=== PATIENT | female | born 1975 | race Caucasian/White ===

== ENCOUNTER 2017-05-27 15:53 | Emergency (ER) | payer OTHER ==
[~2017-05-27] VITALS: Ht 162.6 cm; Wt 60.0 kg
[~2017-05-27 15:53] MED LIST: ALPR-411 PO; FLUO20CA35 PO; RTL20 PO
[2017-05-27 16:01] VITALS: TEMP 37; Ht 162.6 cm; Wt 60.0 kg
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
[2017-05-27 17:07] VITALS: BP 127/87; PULSE 76; O2SAT 96
[2017-05-27] MEDS ORDERED: LPT/20 PO (17:07)
[2017-05-27] MEDS ORDERED: BUPRENORPHIN-NALOXON SL (17:07)
[2017-05-27] MEDS ORDERED: WLLXL300 PO (17:07)
[2017-05-27] MEDS ORDERED: LAMO1TAB21 PO (17:07)
[2017-05-27] MEDS ORDERED: CETI10TA84 PO (17:07)
[2017-05-27] MEDS ORDERED: BUPR150T5 PO (17:07)
[2017-05-27] MEDS ORDERED: HYDR-3126 PO (17:07)
== END 2017-05-27 17:05 | disposition home or self-care (01) ==
LOC: C.EDB 15:53 → C.EDD 17:05
DX: M25.562 Pain in left knee (principal); F32.9 Major depressive disorder, single episode, unspecified; Z79.899 Other long term (current) drug therapy; Z91.09 Other allergy status, other than to drugs and biological substances

== ENCOUNTER 2023-11-25 06:15 | Observation (INO) ==
--- NOTE | 2023-11-25 06:34 | Emergency Department Note ---
Impression & Plan Altered mental status, Hypothermia, Alcoholic intoxication ED Provider Note NAME: URSULA COTTON AGE: 48 SEX: F : 1975 ARRIVES VIA: Ambulance INFORMANT: Patient ED PROVIDER(S): Rj Matthews DO CHIEF COMPLAINT: Cold HPI: Patient is a 48-year-old female with a past medical history of suicide attempt and drug dependence who presents to the ER for intoxication. She was banging on a house and they called the police as they did not know her. She was brought in by EMS. She was found to be hypothermic at 89 degrees. Patient denies any headache chest pain neck pain or belly pain. She admits she went out drinking yesterday and went to multiple bars with friends. She denies any drugs. ADDITIONAL HISTORY OBTAINED: Per HPI Chronic Medical/Social Conditions Affecting Care: Per HPI PAST MEDICAL HISTORY:See Below PAST SURGICAL HISTORY:See Below FAMILY HISTORY:See Below SOCIAL HISTORY:See Below HOME MEDICATIONS:See Below ALLERGIES:See Below VITALS:See Below PHYSICAL EXAMINATION: GENERAL: Sitting up in bed, alert, smell of alcohol on breath, disheveled, cold, shivering HEAD: Small abrasion over the chin EYE EXAM: normal conjunctiva. PERRL and EOM's intact. OROPHARYNX: no exudate, no erythema, lips, buccal mucosa, and tongue normal and mucous membranes are moist NECK: supple, no nuchal rigidity, no adenopathy, non-tender LUNGS: Clear to auscultation. Normal chest wall mechanics HEART: no murmurs, S1 normal and S2 normal ABDOMEN: abdomen soft, non-tender, normo-active bowel sounds, no masses, no rebound or guarding. UPPER EXTREMITIES: No tenderness on bilateral upper extremities LOWER EXTREMITIES: No tenderness on bilateral lower extremity palpation. Bruising bilateral knees NEURO EXAM: Normal sensorium, cranial nerves II-XII intact, normal speech, no weakness of arms, no weakness of legs. No drift. Finger to nose intact. Gross sensation intact. MEDICAL DECISION MAKING: Patient is a 48-year-old female who presents ER for above-stated complaint. IV was established blood work was obtained. Labs show no significant leukocytosis or anemia. INR unremarkable. BMP with mild hypokalemia 3.4. Lactate as well as mag Phos and CK were unremarkable. Pro-Chandu was normal. hCG negative. UA was clean. Patient was positive for ecstasy, benzos, methamphetamines and alcohol. Her mentation improved while she was in the ER. She was significantly hypothermic at 89 F and Iglesia hugger was placed and she was gradually rewarmed in the ER. Her mentation improved significantly. CT of the head neck and face were obtained after I discussed with the radiologist in regards to possible fracture on the Noncon of the head. There was a nasal bone fracture. She was initially given Rocephin was given doses of Unasyn following this. Discussed the case with the hospitalist for further evaluation management treatment. There was noted on the CTs which is likely secondary to IV placement per radiology Consults/Care Managements Discussions: Per [facility] Triage Nursing notes reviewed. Limited review of prior medical records performed Vital Signs: reviewed and remarkable for no significant abnormalities Differential diagnosis: Infection, dehydration, metabolic abnormality, hypo/hyperglycemia, electrolyte disturbance, anemia, hypoxia, cardiac sources, intracerebral event, toxicologic, neurologic, as well as other pathologies. ER treatment provided: See below Diagnostics interpreted by me include EKG and cardiac monitoring as listed below: -Cardiac Monitoring: An order was placed for continuous cardiac monitoring. The monitor shows a rate of 80 with sinus rhythm. -ECG: Sinus tachycardia rate of 62 Normal axis QTc 501 -Laboratory studies:Interpreted by me as stated above in MDM and shown below. Imaging studies: Xrays: As interpreted by me: Portable AP upright 1 view of the chest shows no focal infiltrate CTs show: CT of the head, cervical spine and face as described above Procedures:none Critical Care: None Past Med/Surg History Medical History (Updated 11/25/23 @ 12:27 by Rj Matthews DO) Collapsed lung Epilepsy Mood disorder Drug abuse and dependence Hepatitis C virus Surgical History (Updated 11/25/23 @ 09:48 by Adair Brunner MD) H/O umbilical hernia repair Family History (Updated 11/25/23 @ 09:50 by Adair Brunner MD) Mother Neurological disorder Father Neurological disorder Daughter Neurological disorder Social History Smoking Status: Current every day smoker Tobacco Type: Cigarettes Feels Safe at Home: Yes Allergies Allergies Allergy/AdvReac Type Severity Reaction Status Date / Time vitamin E (d-alpha Allergy Unknown Unknown Verified 08/11/23 15:32 tocopherol) Twiggs Allergy Mild PINE SAP: Uncoded 08/11/23 15:32 RASH Home Meds Home Medications Medication Instructions Recorded Confirmed ATORVASTATIN (LIPITOR) 20 mg PO DAILY ##0 05/27/17 BUPRENORPHIN-NALOXON 2 tabs sublingual Q24H ##0 05/27/17 BUPROPION HCL (BUPROPION HCL XL) 150 mg PO DAILY ##0 05/27/17 Bupropion HCl (Bupropion HCl Xl) 300 mg PO DAILY ##0 05/27/17 Cetirizine (Zyrtec) 10 mg PO DAILY PRN Seasonal 05/27/17 Allergies ##0 HYDROXYZINE HCL (ATARAX) 50 mg PO Q8 PRN Anxiety ##0 05/27/17 LAMOTRIGINE 200 mg PO DAILY ##0 05/27/17 Previous Rx's Medication Instructions Recorded naproxen 500 mg tablet 500 mg PO BID PRN pain #20 tabs 08/11/23 Results & Data (ED) Vital Signs Vital Signs - 24 hr 11/25/23 06:21 11/25/23 06:21 11/25/23 06:21 Temperature 31.8 C L 31.8 C L Temperature Source Rectal Rectal Pulse Rate 82 Pulse Rate [Apical] 82 Pulse Rhythm Regular Pulse Rhythm [Apical] Regular Pulse Strength Normal Pulse Strength [Apical] Normal Respiratory Rate 22 22 Respiratory Effort / Characteristics Non-Labored Spontaneous Non-Labored Spontaneous Respiratory Depth Normal Normal Respiratory Pattern Regular Regular Blood Pressure 144/99 H Blood Pressure [Right Arm] 144/99 H Blood Pressure Mean 114 Blood Pressure Mean [Right Arm] 114 Blood Pressure Position Lying Blood Pressure Position [Right Arm] Lying Pulse Oximetry 100 100 100 Oxygen Delivery Method Room Air Room Air Room Air Sepsis Recent Fever Within 48 Hours No Sepsis New/Unexplained Change in Mental Status N/A Sepsis Action Taken by Nursing Physician Notified 11/25/23 06:21 11/25/23 06:25 11/25/23 07:21 Temperature 31.8 C L 33.4 C L Temperature Source Rectal Rectal Pulse Rate Pulse Rate [Apical] 65 Pulse Rhythm Pulse Rhythm [Apical] Pulse Strength Pulse Strength [Apical] Respiratory Rate 18 Respiratory Effort / Characteristics Non-Labored Spontaneous Respiratory Depth Normal Respiratory Pattern Regular Blood Pressure Blood Pressure [Right Arm] Blood Pressure Mean Blood Pressure Mean [Right Arm] Blood Pressure Position Blood Pressure Position [Right Arm] Pulse Oximetry 100 96 Oxygen Delivery Method Room Air Room Air Sepsis Recent Fever Within 48 Hours Sepsis New/Unexplained Change in Mental Status Sepsis Action Taken by Nursing 11/25/23 07:38 11/25/23 08:00 11/25/23 08:04 Temperature Temperature Source Pulse Rate 76 Pulse Rate [Apical] 73 79 Pulse Rhythm Pulse Rhythm [Apical] Pulse Strength Pulse Strength [Apical] Respiratory Rate 18 18 Respiratory Effort / Characteristics Non-Labored Spontaneous Non-Labored Spontaneous Respiratory Depth Normal Normal Respiratory Pattern Regular Regular Blood Pressure Blood Pressure [Right Arm] 137/95 138/91 Blood Pressure Mean Blood Pressure Mean [Right Arm] 109 106 Blood Pressure Position Blood Pressure Position [Right Arm] Lying Lying Pulse Oximetry 96 95 Oxygen Delivery Method Room Air Room Air Sepsis Recent Fever Within 48 Hours Sepsis New/Unexplained Change in Mental Status Sepsis Action Taken by Nursing 11/25/23 08:30 11/25/23 09:32 11/25/23 09:50 Temperature 35.5 C L 36.7 C Temperature Source Rectal Oral Pulse Rate Pulse Rate [Apical] 92 H 89 Pulse Rhythm Pulse Rhythm [Apical] Pulse Strength Pulse Strength [Apical] Respiratory Rate 18 Respiratory Effort / Characteristics Non-Labored Spontaneous Respiratory Depth Normal Respiratory Pattern Regular Blood Pressure Blood Pressure [Right Arm] 146/93 H Blood Pressure Mean Blood Pressure Mean [Right Arm] 110 Blood Pressure Position Blood Pressure Position [Right Arm] Lying Pulse Oximetry 96 Oxygen Delivery Method Room Air Sepsis Recent Fever Within 48 Hours Sepsis New/Unexplained Change in Mental Status Sepsis Action Taken by Nursing 11/25/23 11:02 11/25/23 11:27 Temperature 36.7 C Temperature Source Oral Pulse Rate 87 Pulse Rate [Apical] 85 Pulse Rhythm Pulse Rhythm [Apical] Pulse Strength Pulse Strength [Apical] Respiratory Rate 18 Respiratory Effort / Characteristics Non-Labored Spontaneous Respiratory Depth Normal Respiratory Pattern Regular Blood Pressure Blood Pressure [Right Arm] 130/86 Blood Pressure Mean Blood Pressure Mean [Right Arm] 100 Blood Pressure Position Blood Pressure Position [Right Arm] Lying Pulse Oximetry 96 98 Oxygen Delivery Method Room Air Room Air Sepsis Recent Fever Within 48 Hours Sepsis New/Unexplained Change in Mental Status Sepsis Action Taken by Nursing Laboratory Data 11/25/23 06:38 11/25/23 06:38 Lab Results 11/25/23 11/25/23 11/25/23 Range/Units 06:38 08:25 08:31 WBC 5.23 (4.8-10.8) K/ul RBC 4.63 (4.20-5.40) M/uL Hgb 13.9 (12.0-16.0) g/dl Hct 43.4 (37.0-47.0) % MCV 93.7 (80.0-100.0) fL MCH 30.0 (25.0-34.0) pg MCHC 32.0 (32.0-36.0) g/dL RDW Std Deviation 43.5 (36.4-46.3) fL RDW Coeff of Em 12.6 (11.5-14.5) % Plt Count 341 (130-400) K/uL MPV 9.2 L (9.4-12.4) fL Immature Gran % (Auto) 1.3 % Neut % (Auto) 46.3 % Lymph % (Auto) 36.9 % Leake % (Auto) 9.6 % Eos % (Auto) 4.8 % Baso % (Auto) 1.1 % Neut # (Auto) 2.42 (1.40-6.50) K/uL Lymph # (Auto) 1.93 (1.20-3.40) K/uL Leake # (Auto) 0.50 (0.11-0.59) K/uL Eos # (Auto) 0.25 (0.00-0.50) K/uL Baso # (Auto) 0.06 (0.00-0.20) K/uL Immature Gran # (Auto) 0.07 (0.01-0.20) K/uL PT 10.9 (9.0-12.0) Seconds INR 1.0 (0.9-1.1) Sodium 141 (136-145) mmol/L Potassium 3.4 L (3.5-5.1) mmol/L Chloride 106 (98-107) mmol/L Carbon Dioxide 30 (21-32) mmol/L Anion Gap 5 (3-11) BUN 13 (6-23) mg/dl Creatinine 0.49 L (0.6-1.2) mg/dl Est Cr Clr Drug Dosing 132.9 ml/min Est GFR ( Amer) 134.5 ml/min Est GFR (Non-Af Amer) 116.0 ml/min BUN/Creatinine Ratio 26.5 H (10-20) Glucose 103 H (70-99(Fasting)) mg/dl Lactate 1.6 (0.4-2.0) mmol/L Calcium 9.1 (8.6-10.3) mg/dl Phosphorus 2.5 (2.5-4.9) mg/dl Magnesium 1.9 (1.7-2.4) mg/dl Total Bilirubin 0.2 (0.2-1.0) mg/dl AST 16 (13-39) U/L ALT 9 (7-52) U/L Alkaline Phosphatase 75 (34-104) U/L Total Creatine Kinase 84 (26-192) U/L Total Protein 8.0 (6.0-8.3) gm/dl Albumin 4.0 (3.4-5.0) gm/dl Globulin 4.0 (2.5-4.0) gm/dl Albumin/Globulin Ratio 1.0 (0.9-2) Procalcitonin < 0.02 (0-0.5) ng/ml HCG, Qual Negative (Negative) Urine Color Yellow Urine Appearance Clear (Clear) Urine pH 8.0 H (4.5-7.5) Ur Specific [place] 1.012 (1.000-1.030) Urine Protein Negative (Negative) Urine Glucose (UA) Negative (Negative) Urine Ketones Negative (Negative) Urine Blood 3+ H (Negative) Urine Nitrite Negative (Negative) Urine Bilirubin Negative (Negative) Urine Urobilinogen Negative (Negative) Ur Leukocyte Esterase Negative (Negative) Urine WBC (Auto) 0-5 (0-5) /hpf Urine RBC (Auto) >20 H (0-2) /hpf U Hyaline Cast (Auto) 0-2 (0-2) /lpf U Epithel Cells (Auto) 0-2 (0-2) /hpf Urine Bacteria (Auto) None Seen (None Seen) Urine Opiates Screen Neg (Neg) Ur Methadone, Qual Neg (Neg) Urine Barbiturates Neg (Neg) Ur Phencyclidine (PCP) Neg (Neg) U Amphetamin/Meth Scrn Pos H (Neg) MDMA (Ecstasy) Screen Pos H (Neg) U Benzodiazepines Scrn Pos H (Neg) Ur Cocaine Metabolite Neg (Neg) U Marijuana (THC) Screen Neg (Neg) Ethyl Alcohol mg/dL 76.1 H (<10.0) mg/dl Administered Medications Discontinued Medications Sodium Chloride (Nss) 1,000 mls @ 999 mls/hr IV .Q1H1M MARGOT Stop: 11/25/23 08:30 Last Infusion: 11/25/23 08:51 Dose: Infused Documented By: Admin: 11/25/23 07:37 Dose: 999 mls/hr Documented By: Infusion: 11/25/23 07:37 Dose: Infused Documented By: Admin: 11/25/23 06:43 Dose: 999 mls/hr Documented By: PAU Thiamine HCl 100 mg/ Syringe 10 mls @ 2 mls/min IV NOW STA Stop: 11/25/23 06:36 Last Admin: 11/25/23 06:58 Dose: 2 mls/min Documented By: KELLEE Folic Acid 1 mg/ Syringe 10 mls @ 5 mls/min IV NOW STA Stop: 11/25/23 06:33 Last Admin: 11/25/23 06:58 Dose: 5 mls/min Documented By: KELLEE Ceftriaxone Sodium (Rocephin) 2,000 mg in 50 mls @ 100 mls/hr IV NOW STA Stop: 11/25/23 08:17 Last Infusion: 11/25/23 09:20 Dose: Infused Documented By: Admin: 11/25/23 08:49 Dose: 100 mls/hr Documented By: KELLEE Ampicillin Sodium/Sulbactam Sodium 3,000 mg/ Sodium Chloride 100 mls @ 200 mls/hr IV NOW STA Stop: 11/25/23 09:35 Last Infusion: 11/25/23 11:05 Dose: Infused Documented By: Admin: 11/25/23 09:49 Dose: 200 mls/hr Documented By: KELLEE Ketorolac Tromethamine (Ketorolac Tromethamine 15 Mg/Ml Vial) 15 mg IV NOW ONE Stop: 11/25/23 08:48 Last Admin: 11/25/23 09:04 Dose: 15 mg Documented By: KELLEE Imaging Data Radiologist's Impression: Head CT 11/25/23 06:30 CT head/brain wo con CLINICAL HISTORY: 48 years-old Female with alvarez. Acute headache with fatigue TECHNIQUE: Multiple axial CT images of the head were obtained without contrast. A dose lowering technique was utilized adhering to the principles of ALARA. CT DOSE: 547.75 mGy.cm COMPARISON: 05/01/2011 FINDINGS: No acute intracranial hemorrhage, midline shift, intracranial mass, hydrocephalus, territorial ischemia or abnormal extra-axial collection. The calvarium is intact. Partially imaged deep tissue air noted noted anterior to the pterygoid musculature adjacent to the posterior maloney of the maxillary sinuses. Bony irregularity of the nasal bones. The paranasal sinuses, mastoid air cells, and middle ear cavities are clear. IMPRESSION: 1. No acute intracranial abnormality or calvarial fracture. 2. Partially imaged deep tissue air anterior to the pterygoid musculature adjacent to the posterior maloney of the maxillary sinuses. Findings could be correlated with CT maxillofacial. ACT 112: Negative or not required by law. The above report was generated using voice recognition software. It may contain grammatical, syntax or spelling errors. Electronically signed by: Cb Bundy M.D. 11/25/2023 8:13 AM Chest X-Ray 11/25/23 06:39 XR chest 1V portable HISTORY: 48 years-old Female weak acute weakness COMPARISON: 05/01/2011 TECHNIQUE: AP view the chest FINDINGS: Cardiomediastinal and hilar silhouettes are within normal limits. No pneumothorax, pleural effusion, airspace consolidation or pulmonary edema. Bones of the chest appear grossly intact. IMPRESSION: No acute process. ACT 112: Negative or not required by law. The above report was generated using voice recognition software. It may contain grammatical, syntax or spelling errors. Electronically signed by: Cb Bundy M.D. 11/25/2023 7:[address] 11/25/23 08:12 CT cervical spine wo con CT DOSE: 777.18 mGy.cm CLINICAL HISTORY: 48 years-old Female with fall. Acute neck injury status post fall COMPARISON: 05/11/2011 TECHNIQUE: Multiple axial CT images of the cervical spine were obtained without contrast. A dose lowering technique was utilized adhering to the principles of ALARA. FINDINGS: Moderate intervertebral disc space narrowing with bridging osteophytosis and posterior disc osteophyte complex that C5-C6. Multilevel facet arthrosis, severe on the left at C2-C3 and C7-T1. No acute fracture or subluxation. Multilevel neural foraminal narrowing. No high-grade central canal stenosis identified. Heterogeneous multinodular thyroid with nodules measuring up to approximately 9-10 mm on the right. No prevertebral edema. No pneumothorax. Mild ill-defined groundglass opacities in the right lung apex are nonspecific. IMPRESSION: No acute fracture or subluxation. ACT 112: Negative or not required by law. The above report was generated using voice recognition software. It may contain grammatical, syntax or spelling errors. Electronically signed by: Cb Bundy M.D. 11/25/2023 8:[address] 11/25/23 08:12 CT facial bones wo con CLINICAL HISTORY: 48 years-old Female presenting with fall. Acute facial trauma status post fall COMPARISON STUDY: CT head and cervical spine studies of same day TECHNIQUE: High-resolution CT scan of the facial bones is performed. Images are reviewed in the axial, sagittal, and coronal planes. IV contrast was not administered for this examination. A dose lowering technique was utilized adhering to the principles of ALARA. FINDINGS: Bilateral nondisplaced nasal bone fractures, likely acute. Mild mucosal thickening of the paranasal sinuses. Mastoid air cells and middle ear cavities are clear. Foci of deep tissue are noted within the cavernous sinuses and anterior to the right pterygoid musculature posterior to the right maxillary wall. No additional acute facial bone fracture identified. Numerous dental caries with periapical cyst. No acute intracranial abnormality identified. Small forehead and facial contusions. IMPRESSION: 1. Bilateral nondisplaced nasal bone fractures, favored to be acute. 2. Air within the cavernous sinuses and adjacent to the pterygoid musculature is likely secondary to air injected through the intravenous catheter. 3. Mild mucosal thickening of the paranasal sinuses. ACT 112: Negative or not required by law. The above report was generated using voice recognition software. It may contain grammatical, syntax or spelling errors. Electronically signed by: Cb Bundy M.D. 11/25/2023 8:55 AM Lumbar Spine X-Ray 11/25/23 08:47 XR lumbar spine 2-3V HISTORY: 48 years-old Female fall lower back pain acute low back pain status post fall COMPARISON: CT 05/01/2011 TECHNIQUE: 3 views of the lumbar spine FINDINGS: Moderate colonic fecal retention. Unremarkable soft tissues. Severe L4-L5 intervertebral disc space narrowing with progressive 1.2 cm anterolisthesis secondary to chronic pars defects. Progressively worsened now severe intervertebral disc space narrowing at L5-S1 with severe L5-S1 facet arthrosis. IMPRESSION: 1. No acute fracture. 2. Severe L4-L5 and L5-S1 intervertebral disc space narrowing. 3. Progressive anterolisthesis L4 on L5 secondary to chronic pars defects. ACT 112: Negative or not required by law. The above report was generated using voice recognition software. It may contain grammatical, syntax or spelling errors. Electronically signed by: Cb Bundy M.D. 11/25/2023 9:46 AM Discharge Plan Visit Data Chief Complaint: Alcohol Intoxication Stated Complaint: ALCOHOL INTOXICATION ED Provider: Rj Matthews Discharge Problem: Altered mental status, Hypothermia, Alcoholic intoxication Patient Disposition: Admitted As Inpatient Discharge Instructions Interventions: ED Discharge Assessment Last Done: 11/25/23 12:24 Forms Stand Alone Forms: Slingbox Prescriptions Prescriptions: No Action ATORVASTATIN (LIPITOR) 20 MG tablet 20 mg PO DAILY Qty: 0 BUPRENORPHIN-NALOXON 8-2 mg 2 tabs Sublingual Q24H Qty: 0 BUPROPION HCL (BUPROPION HCL XL) 150 MG tablet 150 mg PO DAILY Qty: 0 Bupropion HCl (Bupropion HCl Xl) 300 MG [id number] 300 mg PO DAILY Qty: 0 Cetirizine (Zyrtec) 10 MG tablet 10 mg PO DAILY PRN (Reason: Seasonal Allergies) Qty: 0 HYDROXYZINE HCL (ATARAX) 50 MG tablet 50 mg PO Q8 PRN (Reason: Anxiety) Qty: 0 LAMOTRIGINE 100 MG tablet 200 mg PO DAILY Qty: 0 naproxen 500 mg tablet 500 mg PO BID PRN (Reason: pain) Qty: 20 0RF Referrals Referrals: PCP,NO [Primary Care Provider] - Discharge Problem: Altered mental status Qualifiers: Altered mental status type: unspecified Qualified Code(s): R41.82 - Altered mental status, unspecified Hypothermia Qualifiers: Encounter type: initial encounter Qualified Code(s): T68.XXXA - Hypothermia, initial encounter Alcoholic intoxication Qualifiers: Complication of substance-induced condition: uncomplicated Qualified Code(s): F 10.920 - Alcohol use, unspecified with intoxication, uncomplicated
[2023-11-25] MEDS: SODIUM CHLORIDE 0.9% 1,000 ML IV SCH (06:43)
[2023-11-25 06:56] LABS: Basophils # (auto) 0.06 K/uL (0.00-0.20); Basophils % (auto) 1.1 %; Eosinophils # (auto) 0.25 K/uL (0.00-0.50); Eosinophils % (auto) 4.8 %; Hematocrit (blood only) 43.4 % (37.0-47.0); Hemoglobin 13.9 g/dl (12.0-16.0); Immature Granulocytes # (auto) 0.07 K/uL (0.01-0.20); Immature Granulocytes % (auto) 1.3 %; Lymphocytes # (auto) 1.93 K/uL (1.20-3.40); Lymphocytes % (auto) 36.9 %; Mean Corpuscular Volume 93.7 fL (80.0-100.0); Mean Platelet Volume 9.2 fL (9.4-12.4); Monocytes % (auto) 9.6 %; Neutrophils # (auto) 2.42 K/uL (1.40-6.50); Neutrophils % (auto) 46.3 %; Platelet Count 341 K/uL (130-400); RDW Coefficient of Variation 12.6 % (11.5-14.5); RDW Standard Deviation 43.5 fL (36.4-46.3); Red Blood Count 4.63 M/uL (4.20-5.40); White Blood Count 5.23 K/ul (4.8-10.8)
[2023-11-25] MEDS: FOLIC ACID 1 MG in SYRINGE 9.8 ML IV STA (06:58)
[2023-11-25] MEDS: THIAMINE HCL 100 MG in SYRINGE 9 ML IV STA (06:58)
[2023-11-25 07:05] LABS: Pregnancy Test, Serum Negative (Negative)
[2023-11-25 07:09] LABS: BUN Creatinine Ratio 26.5 (10-20); Bilirubin,Total 0.2 mg/dl (0.2-1.0); Calcium 9.1 mg/dl (8.6-10.3); Creatinine Clr Calc Pharmacy 132.9 ml/min; Est GFR (African American) 134.5 ml/min; Magnesium 1.9 mg/dl (1.7-2.4); Potassium 3.4 mmol/L (3.5-5.1)
[2023-11-25 07:34] LABS: Prothrombin Time 10.9 Seconds (9.0-12.0)
--- NOTE | 2023-11-25 08:01 | XRay Report ---
XR chest 1V portable HISTORY: 48 years-old Female weak acute weakness COMPARISON: 05/01/2011 TECHNIQUE: AP view the chest FINDINGS: Cardiomediastinal and hilar silhouettes are within normal limits. No pneumothorax, pleural effusion, airspace consolidation or pulmonary edema. Bones of the chest appear grossly intact. IMPRESSION: No acute process. ACT 112: Negative or not required by law. The above report was generated using voice recognition software. It may contain grammatical, syntax o r spelling errors. Electronically signed by: Cb Bundy M.D. 11/25/2023 7:59 AM
--- NOTE | 2023-11-25 08:16 | CT Scan Report ---
CT head/brain wo con CLINICAL HISTORY: 48 years-old Female with alvarez. Acute headache with fatigue TECHNIQUE: Multiple axial CT images of the head were obtained without contrast. A dose lowering tech nique was utilized adhering to the principles of ALARA. CT DOSE: 547.75 mGy.cm COMPARISON: 05/01/2011 FINDINGS: No acute intracranial hemorrhage, midline shift, intracranial mass, hydrocephalus, territorial ischem ia or abnormal extra-axial collection. The calvarium is intact. Partially imaged deep tissue air noted noted anterior to the pterygoid muscu lature adjacent to the posterior maloney of the maxillary sinuses. Bony irregularity of the nasal bones . The paranasal sinuses, mastoid air cells, and middle ear cavities are clear. IMPRESSION: 1. No acute intracranial abnormality or calvarial fracture. 2. Partially imaged deep tissue air anterior to the pterygoid musculature adjacent to the posterior w alls of the maxillary sinuses. Findings could be correlated with CT maxillofacial. ACT 112: Negative or not required by law. The above report was generated using voice recognition software. It may contain grammatical, syntax o r spelling errors. Electronically signed by: Cb Bundy M.D. 11/25/2023 8:13 AM
[2023-11-25] MEDS: cefTRIAXone SODIUM 2,000 MG/50 ML BAG IV STA (08:49)
--- NOTE | 2023-11-25 08:57 | CT Scan Report ---
CT facial bones wo con CLINICAL HISTORY: 48 years-old Female presenting with fall. Acute facial trauma status post fall COMPARISON STUDY: CT head and cervical spine studies of same day TECHNIQUE: High-resolution CT scan of the facial bones is performed. Images are reviewed in the axia l, sagittal, and coronal planes. IV contrast was not administered for this examination. A dose lower ing technique was utilized adhering to the principles of ALARA. FINDINGS: Bilateral nondisplaced nasal bone fractures, likely acute. Mild mucosal thickening of the paranasal s inuses. Mastoid air cells and middle ear cavities are clear. Foci of deep tissue are noted within the cavernous sinuses and anterior to the right pterygoid musculature posterior to the right maxillary w all. No additional acute facial bone fracture identified. Numerous dental caries with periapical cyst . No acute intracranial abnormality identified. Small forehead and facial contusions. IMPRESSION: 1. Bilateral nondisplaced nasal bone fractures, favored to be acute. 2. Air within the cavernous sinuses and adjacent to the pterygoid musculature is likely secondary to air injected through the intravenous catheter. 3. Mild mucosal thickening of the paranasal sinuses. ACT 112: Negative or not required by law. The above report was generated using voice recognition software. It may contain grammatical, syntax o r spelling errors. Electronically signed by: Cb Bundy M.D. 11/25/2023 8:55 AM
[2023-11-25 08:58] LABS: Appearance Urine Clear (Clear); Bacteria Urine Automated None Seen (None Seen); Bilirubin Urine Negative (Negative); Blood Urine 3+ (Negative); Cast Urine Automated 0-2 /lpf (0-2); Color Urine Yellow; Epithelial Cell Urine Auto 0-2 /hpf (0-2); Glucose Urine UA Negative (Negative); Ketones Urine Negative (Negative); Leukocyte Esterase Urine Negative (Negative); Nitrite Urine Negative (Negative); Protein Urine Negative (Negative); RBC Urine Automated >20 /hpf (0-2); Specific Gravity Urine 1.012 (1.000-1.030); Urobilinogen Urine Negative (Negative); WBC Urine Automated 0-5 /hpf (0-5)
--- NOTE | 2023-11-25 09:02 | CT Scan Report ---
CT cervical spine wo con CT DOSE: 777.18 mGy.cm CLINICAL HISTORY: 48 years-old Female with fall. Acute neck injury status post fall COMPARISON: 05/11/2011 TECHNIQUE: Multiple axial CT images of the cervical spine were obtained without contrast. A dose low ering technique was utilized adhering to the principles of ALARA. FINDINGS: Moderate intervertebral disc space narrowing with bridging osteophytosis and posterior disc osteophyte complex that C5-C6. Multilevel facet arthrosis, severe on the left at C2-C3 and C7-T1. No acute fracture or subluxation. Multilevel neural foraminal narrowing. No high-grade central canal st enosis identified. Heterogeneous multinodular thyroid with nodules measuring up to approximately 9-10 mm on the right. No prevertebral edema. No pneumothorax. Mild ill-defined groundglass opacities in t he right lung apex are nonspecific. IMPRESSION: No acute fracture or subluxation. ACT 112: Negative or not required by law. The above report was generated using voice recognition software. It may contain grammatical, syntax o r spelling errors. Electronically signed by: Cb Bundy M.D. 11/25/2023 8:59 AM
[2023-11-25] MEDS: KETOROLAC TROMETHAMINE 15 MG/ML VIAL IV ONE (09:04)
--- NOTE | 2023-11-25 09:48 | XRay Report ---
XR lumbar spine 2-3V HISTORY: 48 years-old Female fall lower back pain acute low back pain status post fall COMPARISON: CT 05/01/2011 TECHNIQUE: 3 views of the lumbar spine FINDINGS: Moderate colonic fecal retention. Unremarkable soft tissues. Severe L4-L5 intervertebral disc space n arrowing with progressive 1.2 cm anterolisthesis secondary to chronic pars defects. Progressively wor sened now severe intervertebral disc space narrowing at L5-S1 with severe L5-S1 facet arthrosis. IMPRESSION: 1. No acute fracture. 2. Severe L4-L5 and L5-S1 intervertebral disc space narrowing. 3. Progressive anterolisthesis L4 on L5 secondary to chronic pars defects. ACT 112: Negative or not required by law. The above report was generated using voice recognition software. It may contain grammatical, syntax o r spelling errors. Electronically signed by: Cb Bundy M.D. 11/25/2023 9:46 AM
[2023-11-25] MEDS: AMPICILLIN/SULBACTAM SOD 3,000 MG in SODIUM CHLOR 0.9% MINI-B 100 ML IV STA (09:49)
[2023-11-25 09:52] LABS: Amphetamines+Metham, Urine Pos (Neg); Barbiturates, Urine Neg (Neg); Benzodiazepine, Urine Pos (Neg); Cocaine, Urine Neg (Neg); MDMA (Ecstacy), Urine Pos (Neg); Marijuana, Urine Neg (Neg); Methadone, Urine Neg (Neg); Opiate, Urine Neg (Neg); Phencyclidine, Urine Neg (Neg)
--- NOTE | 2023-11-25 10:00 | History & Physical Report ---
Date of Service November 25, 2023 Assessment & Plan (1) Altered mental status: (2) Hypothermia: Plan: 48 yo F w/ hx of drug abuse and dependence, history of suicide attempt, history of hep C s/p treatment, mood disorder, epilepsy/ seizures, smoker, history of poor dentition who presents with other mental status and hypothermic. Patient was pounding on the door on some house in [place], and was brought in by [facility] [employer]. Reportedly patient was drinking alcohol, took xanax, and Gabapentin. She also admits taking meth about 3 days ago, adderall, suboxne Patient was found hypothermic in the ED 31.8 Celsius, and Iglesia hugger was applied. Alcohol level 76, however full urine tox still pending. Hx of poor dentition - seen in ED in 07/2023 - prescribed augmentin ? homelessness. pt reports waking up in 'dirt", belongings found in alley Hypothermia - ? 09/14 to being homeless vs infection She was given ceftriaxone initially, now plan to start Unasyn per ED provider, as on CT nasal bone fractures found. Blood cultures obtained. ECG obtained, found prolonged QT. Follow cultx Obtain UA Groundglass opacities found on CT cervical spine - will obtain CT chest Procal Broad spectrum abx for now Cont. using iglesia hugger for now, closely monitor temp and hemodynamic status Alcohol intox./ alcohol abuse/ hx of seizure thiamine, folic acid monitor for withdrawal and seizure gabapentin protocol, ativan prn Pt can not clarify hx of seizures - home meds which she is not taking now are Trileptal, Lamictal. says she restarted taking wellbutrin 3 days ago (given by friend). Will further discus w/ neurology about possibly restarting her medications. Heterogeneous multinodular thyroid with nodules - found on CT, will need follow up - will obtain TSH Hx of hep C reportedly s/p treatment History of Present Illness Chief Complaint: AMS, hypothermia Primary Care Provider: NO PCP 48 yo F w/ hx of drug abuse and dependence, history of suicide attempt, history of hep C s/p treatment, mood disorder, epilepsy/ seizures, smoker, history of poor dentition who presents with other mental status and hypothermic. Patient was pounding on the door on some house in [place], and was brought in by [facility] [employer]. Reportedly patient was drinking alcohol, took xanax, and Gabapentin. Patient's belongings found in an alley way, questionable homelessness. Pt says she woke up in "dirt" outside. She says she "got intoxicated", and also took meth about 3 days ago, adderal and suboxone. Says she does not have insurance and so does not take her home meds - which include Prozac, Lamictal, Trileptal. She was also taking Wellbutrin - says she has been back on wellbutrin since about 3 days ago and got this from 'friend". She can not clarify her hx of seizures for me. She says she has not been seen by a doctor in a long time. She was seen in the ED here in July 2023 for broken tooth/ poor dentition and was discharged on Augmentin. Patient was found hypothermic in the ED 31.8 Celsius, and Iglesia hugger was applied. Alcohol level 76, however full urine tox still pending. She was given ceftriaxone initially, now plan to start Unasyn per ED provider, as on CT nasal bone fractures found. Blood cultures obtained. ECG obtained, found prolonged QT. Allergies Allergy/AdvReac Type Severity Reaction Status Date / Time vitamin E (d-alpha Allergy Unknown Unknown Verified 08/11/23 15:32 tocopherol) [place] Allergy Mild PINE SAP: Uncoded 08/11/23 15:32 RASH Home Medications Medication Instructions Recorded Confirmed Type ATORVASTATIN (LIPITOR) 20 mg PO DAILY ##0 05/27/17 History BUPRENORPHIN-NALOXON 2 tabs sublingual Q24H ##0 05/27/17 History BUPROPION HCL (BUPROPION HCL XL) 150 mg PO DAILY ##0 05/27/17 History Bupropion HCl (Bupropion HCl Xl) 300 mg PO DAILY ##0 05/27/17 History Cetirizine (Zyrtec) 10 mg PO DAILY PRN Seasonal 05/27/17 History Allergies ##0 HYDROXYZINE HCL (ATARAX) 50 mg PO Q8 PRN Anxiety ##0 05/27/17 History LAMOTRIGINE 200 mg PO DAILY ##0 05/27/17 History naproxen 500 mg tablet 500 mg PO BID PRN pain #20 tabs 08/11/23 Rx Past Med/Surg History Medical History (Updated 11/25/23 @ 12:27 by Rj Matthews DO) Collapsed lung Epilepsy Mood disorder Drug abuse and dependence Hepatitis C virus Surgical History (Updated 11/25/23 @ 09:48 by Adair Brunner MD) H/O umbilical hernia repair Family History (Updated 11/25/23 @ 09:50 by Adair Brunner MD) Mother Neurological disorder Father Neurological disorder Daughter Neurological disorder Social History Smoking Status: Current every day smoker Tobacco Type: Cigarettes Feels Safe at Home: Yes Review of Systems Review of Systems: All systems reviewed & are unremarkable except as noted in Subjective Physical Exam Physical Exam: Face - with small lacerations and edema Constitutional: WD/WN, vitals as above Eyes: PERRL, conjunctivae normal, anicteric sclerae ENMT: external ear and nose normal, oropharynx normal Neck: normal visual inspection Respiratory: normal respiratory effort, lungs clear to auscultation Cardiovascular: RRR, no murmur, no edema Chest (Breasts): Chest: normal inspection of chest Gastrointestinal (Abdomen): normal bowel sounds, soft, nontender, no hepatosplenomegaly Musculoskeletal: no cyanosis or clubbing, extremities motor strength 5/5 Skin: no rashes, warm and dry Neurologic: PERRL, EOMI, accommodation nl, no face palsy, no dysarthria Psychiatric: A+Ox3, euthymic affect (drowsy but arousable) Lymphatic: no lymphedema Results & Data Results & Data Vital Signs (Past 12 Hours) Vital Signs Temp Pulse Pulse Resp BP BP Pulse Ox 11/25/23 09:32 89 18 146/93 H 96 11/25/23 08:30 35.5 C L 92 H 11/25/23 08:04 76 11/25/23 08:00 79 18 138/91 95 11/25/23 07:38 73 18 137/95 96 11/25/23 07:21 33.4 C L 65 18 96 11/25/23 06:25 31.8 C L 11/25/23 06:21 100 11/25/23 06:21 31.8 C L 82 22 144/99 H 100 11/25/23 06:21 100 11/25/23 06:21 31.8 C L 82 22 144/99 H 100 O2 Del Method 11/25/23 09:32 Room Air 11/25/23 08:30 11/25/23 08:04 11/25/23 08:00 Room Air 11/25/23 07:38 Room Air 11/25/23 07:21 Room Air 11/25/23 06:25 11/25/23 06:21 Room Air 11/25/23 06:21 Room Air 11/25/23 06:21 Room Air 11/25/23 06:21 Room Air Diagnostic Findings CXR FINDINGS: Cardiomediastinal and hilar silhouettes are within normal limits. No pneumothorax, pleural effusion, airspace consolidation or pulmonary edema. Bones of the chest appear grossly intact. IMPRESSION: No acute process. CT Head FINDINGS: No acute intracranial hemorrhage, midline shift, intracranial mass, hydrocephalus, territorial ischemia or abnormal extra-axial collection. The calvarium is intact. Partially imaged deep tissue air noted noted anterior to the pterygoid musculature adjacent to the posterior maloney of the maxillary sinuses. Bony irregularity of the nasal bones. The paranasal sinuses, mastoid air cells, and middle ear cavities are clear. IMPRESSION: 1. No acute intracranial abnormality or calvarial fracture. 2. Partially imaged deep tissue air anterior to the pterygoid musculature adjacent to the posterior maloney of the maxillary sinuses. Findings could be correlated with CT maxillofacial. CT Cervical spine FINDINGS: Moderate intervertebral disc space narrowing with bridging osteophytosis and posterior disc osteophyte complex that C5-C6. Multilevel facet arthrosis, severe on the left at C2-C3 and C7-T1. No acute fracture or subluxation. Multilevel neural foraminal narrowing. No high-grade central canal stenosis identified. Heterogeneous multinodular thyroid with nodules measuring up to approximately 9-10 mm on the right. No prevertebral edema. No pneumothorax. Mild ill-defined groundglass opacities in the right lung apex are nonspecific. IMPRESSION: No acute fracture or subluxation. CT Face FINDINGS: Bilateral nondisplaced nasal bone fractures, likely acute. Mild mucosal thickening of the paranasal sinuses. Mastoid air cells and middle ear cavities are clear. Foci of deep tissue are noted within the cavernous sinuses and anterior to the right pterygoid musculature posterior to the right maxillary wall. No additional acute facial bone fracture identified. Numerous dental caries with periapical cyst. No acute intracranial abnormality identified. Small forehead and facial contusions. IMPRESSION: 1. Bilateral nondisplaced nasal bone fractures, favored to be acute. 2. Air within the cavernous sinuses and adjacent to the pterygoid musculature is likely secondary to air injected through the intravenous catheter. - this was discussed w/ ED provider and radiologist 3. Mild mucosal thickening of the paranasal sinuses.
[2023-11-25] MEDS ORDERED: LORazepam 3 MG in SYRINGE 1.5 ML IV PRN (10:46)
[2023-11-25] MEDS ORDERED: GABAPENTIN 600MG ALCOHOL WITHDRAWAL LOAD PO STA (10:46)
[2023-11-25] MEDS ORDERED: Ativan IV Alcohol Withdrawal--Active Protocol IV PRN (10:46)
[2023-11-25 10:47] LABS: Phosphorus 2.5 mg/dl (2.5-4.9)
--- NOTE | 2023-11-25 12:33 | CT Scan Report ---
CT chest diagnostic wo con CT DOSE: 226.07 mGy.cm CLINICAL HISTORY: 48 years-old Female with abnormal imaging. Acute weakness TECHNIQUE: Multiaxial CT images of the chest were performed without contrast. A dose lowering techni que was utilized adhering to the principles of ALARA. COMPARISON: Chest radiograph of same day, chest CT 10/30/2015 FINDINGS: Subcentimeter thyroid nodules. Subcentimeter mediastinal and hilar lymph nodes are likely n eurologic. Mild nonspecific circumferential wall thickening of the esophagus which is fluid-filled. H eart is upper limits in size without pericardial effusion. No thoracic aortic aneurysm. No pneumothor ax, pleural effusion or overt pulmonary edema. Mild patchy subsegmental ground glass opacities are no joleen throughout the right lung. Mild subsegmental left basilar atelectasis. The central airways are pa tent. No acute fracture. Soft tissues are unremarkable. No acute upper abdominal abnormality. IMPRESSION: 1. Patchy subsegmental groundglass densities are noted throughout the right lung. This finding in con junction with a fluid-filled esophagus raises the possibility of aspiration pneumonitis. 2. No lymphadenopathy or pleural effusion. ACT 112: Negative or not required by law. Electronically signed by: Cb Bundy M.D. 11/25/2023 12:30 PM
[2023-11-25] MEDS: POTASSIUM CHLORIDE / WTR 10 MEQ/100 ML PLCT IV ONE (13:45)
[2023-11-25] MEDS: MAGNESIUM SULFATE / D5W 1 GM/100 ML BAG IV ONE (13:45)
[2023-11-25] MEDS: LIDOCAINE 5% 1 PATCH TD STA (13:48)
[2023-11-25] MEDS: GABAPENTIN 600 MG TAB PO ONE (13:53)
--- NOTE | 2023-11-25 15:25 | Electrocardiogram Report ---
Test Reason : Blood Pressure : / mmHG Vent. Rate : 062 BPM Atrial Rate : 062 BPM P-R Int : 148 ms QRS Dur : 078 ms QT Int : 494 ms P-R-T Axes : 052 049 053 degrees QTc Int : 501 ms Normal sinus rhythm Prolonged QT Abnormal ECG When compared with ECG of 30-OCT-2015 02:43, Vent. rate has decreased BY 43 BPM Confirmed by Alfredito Sams ([id number]) on 11/25/2023 3:25:18 PM Referred By: REFERRED SELF Confirmed By:Stew Sams
[2023-11-25] MEDS: AMPICILLIN/SULBACTAM SOD 3,000 MG in SODIUM CHLOR 0.9% MINI-B 100 ML IV SCH (16:54)
[2023-11-25] MEDS: ACETAMINOPHEN 325 MG TAB PO PRN (20:18)
[2023-11-25] MEDS: THIAMINE HCL 200 MG in SODIUM CHLORIDE 0.9% 50 ML IV SCH (20:28)
[2023-11-25] MEDS: LORazepam 1 MG in SYRINGE 0.5 ML IV PRN (20:34)
[2023-11-25] MEDS: GABAPENTIN 100 MG CAP PO SCH (20:34)
[2023-11-25] MEDS: NICOTINE 14 MG/24 HR PATCH TD SCH (22:23)
[2023-11-26 07:19] LABS: Basophils # (auto) 0.04 K/uL (0.00-0.20); Basophils % (auto) 0.6 %; Eosinophils # (auto) 0.29 K/uL (0.00-0.50); Eosinophils % (auto) 4.1 %; Hematocrit (blood only) 33.5 % (37.0-47.0); Hemoglobin 11.3 g/dl (12.0-16.0); Immature Granulocytes # (auto) 0.02 K/uL (0.01-0.20); Immature Granulocytes % (auto) 0.3 %; Lymphocytes # (auto) 1.81 K/uL (1.20-3.40); Lymphocytes % (auto) 25.4 %; Mean Corpuscular Hgb Conc 33.7 g/dL (32.0-36.0); Mean Corpuscular Volume 91.8 fL (80.0-100.0); Mean Platelet Volume 9.8 fL (9.4-12.4); Monocytes # (auto) 0.68 K/uL (0.11-0.59); Monocytes % (auto) 9.5 %; Neutrophils # (auto) 4.29 K/uL (1.40-6.50); Neutrophils % (auto) 60.1 %; Platelet Count 302 K/uL (130-400); RDW Coefficient of Variation 12.7 % (11.5-14.5); RDW Standard Deviation 42.9 fL (36.4-46.3); Red Blood Count 3.65 M/uL (4.20-5.40); White Blood Count 7.13 K/ul (4.8-10.8)
[2023-11-26] MEDS: LORazepam 2 MG in SYRINGE 1 ML IV PRN (07:44)
[2023-11-26] MEDS: FOLIC ACID 1 MG in SYRINGE 9.8 ML IV SCH (07:46)
[2023-11-26 07:47] LABS: Albumin Level 3.1 gm/dl (3.4-5.0); BUN Creatinine Ratio 14.8 (10-20); Bilirubin,Total 0.3 mg/dl (0.2-1.0); Calcium 8.5 mg/dl (8.6-10.3); Creatinine Clr Calc Pharmacy 117.4 ml/min; Est GFR (African American) 130.2 ml/min; Est GFR (Non-African American) 112.4 ml/min; Globulin 3.1 gm/dl (2.5-4.0); Magnesium 1.9 mg/dl (1.7-2.4); Phosphorus 3.4 mg/dl (2.5-4.9); Potassium 3.3 mmol/L (3.5-5.1); Total Protein 6.2 gm/dl (6.0-8.3)
[2023-11-26 08:00] LABS: Thyroid Stimulating Hormone 0.667 uIu/ml (0.300-4.500)
[2023-11-26] MEDS ORDERED: ACETAMINOPHEN 1,000 MG/100 ML VIAL IV PRN (09:27)
[2023-11-26] MEDS: FLUoxetine HCL 10 MG CAP PO STA (09:42)
[2023-11-26] MEDS: KETOROLAC TROMETHAMINE 15 MG/ML VIAL IV ONE (09:42)
[2023-11-26] MEDS: CYCLOBENZAPRINE HCL 10 MG TAB PO STA (09:42)
[2023-11-26] MEDS: GABAPENTIN 600 MG TAB PO SCH (10:27)
--- NOTE | 2023-11-26 11:18 | Hospitalist Progress Note ---
Date of Service November 26, 2023 Assessment & Plan (1) Altered mental status: (2) Hypothermia: Plan: Ms. Gastelum is 48 year old woman with history of polysubstance drug abuse, history of suicide attempt, history of hep C s/p treatment, mood disorder, epilepsy/ seizures, smoker, history of poor dentition who was admitted on 11/24 due to acute metabolic encephalopathy and hypothermia. Patient found by Jacklyn FULTON and brought in for evaluation. Patient reports taking multiple substances within a short period of time, including psychmedications (adderall, wellbutrin, xanax) Suboxone (not prescribed) and crystal meth, in addition to alcohol. Patient reports falling and denies assault. Patient requesting multiple medications--mostly wellbutrin, however, she does not take consistently. She has history of seizure which is unclear as well, noting it was worse during , and believes it has been "years" since her last. She has not been on her antiepileptic medications for some "months." Has history of follow MAT and received injections of sublocade, but this was documented in 2019. Last updated [facility] include oxcarbazepine 600mg q12 hours, lamotrigine 100mg q12, prozac 20mg q12 #Hypothermia likely 2/2 acute intoxication and being outdoors for unknown period of time TSH 0.667 Resolved #Acute intoxication #Polysubstance abuse History of heroin abuse, now sources suboxone on street, no formal prescription Current meth use, benzo misuse CIWA and vitamin supplementation ongoing Conservative management as needed for opioid/Suboxone withdrawal Psych consult Gabapentin taper #Epilepsy #mood disorder Reported 4 years since last seizure, not on active meds Prior Regimen: Lamictal 100mg BID, Oxcarbazepine 600mg BID Neurology following: -Psychiatry consultation placed as "patient reports hx of being prescribed oxcarbazepine and lamotrigine due to overlapping effects of mood stabilization and AED" - Discontinue and avoid Wellbutrin 2/2 risk of lowering seizure threshold - Avoid levetiracetam due to hx of suicidal attempt/ideation -Continue continued seizure precautions, and utilize benzodiazepines emergently for any breakthrough clinical seizure like activity -Order MRI brain with and without contrast and EEG non urgently -s/p 10mg prozac, will defer to psych for continued regimen #Acute low back pain, DJD on imaging -lumbar XRay with severe narrowing of lumbar L4-L5, L5-S1 Tylenol and Ketorlac IV CT lumbar ordered #Acute nondisplaced nasal bon fracture Conservative management #GGO on CT chest #Aspiration pneumonitis? Denies respiratory symptoms at this time, covered with unasyn Follow infectious work up She was given ceftriaxone initially, now plan to start Unasyn per ED provider, as on CT nasal bone fractures found. Blood cultures obtained. ECG obtained, found #Anemia -Normocytic, no signs of bleed Anemia labs in am #prolonged QT. Repeat EKG #Multinodular thyroid with nodules TSH 0.667 Will need PCP follow up #Prior hep C -s/p treatment -Will order LFTS, will need OP follow up DVT lovenox Monitor on PCU in active withdrawal, follow up psych recommendations Admission and Anticipated Discharge Date Admission Date: November 25, 2023 Subjective LISA Reports feeling better, but noting that she is likely to withdrawal from suboxone. Requesting wellbutrin and prozac States she has not been consistent with any medications for months/years Endorses pain in neck and back, as well as general discomfort from impending withdrawal Reports most substances are acquired from "friends" and has not had routine care in "sometime" Denies any chest pain, palpitations or fevers/chills Physical Exam Constitutional: WD/WN, vitals as above anxious/nervous on exam Respiratory: normal respiratory effort, lungs clear to auscultation Cardiovascular: RRR, no murmur, no edema Skin: multiple abrasions and excoriations on nose and bilateral upper extremities; no signs of superimposed cellulitis Results & Data Results & Data Vital Signs (Past 12 Hours) Vital Signs Temp Pulse Resp BP Pulse Ox O2 Del Method 11/26/23 07:24 36.5 C 86 18 148/106 H 99 Room Air 11/26/23 01:39 36.7 C 73 16 134/88 98 Room Air Laboratory Results Short CBC 11/26/23 Range/Units 05:57 WBC 7.13 (4.8-10.8) K/ul Hgb 11.3 L (12.0-16.0) g/dl Hct 33.5 L (37.0-47.0) % Plt Count 302 (130-400) K/uL BMP 11/26/23 05:57 Sodium 139 Potassium 3.3 L Chloride 108 H Carbon Dioxide 27 BUN 8 Creatinine 0.54 L Glucose 93 Calcium 8.5 L Liver Function 11/26/23 Range/Units 05:57 Total Bilirubin 0.3 (0.2-1.0) mg/dl AST 13 (13-39) U/L ALT 7 (7-52) U/L Alkaline Phosphatase 61 (34-104) U/L Albumin 3.1 L (3.4-5.0) gm/dl Medications Administered Home Medications Medication Instructions Recorded Confirmed Last Taken ATORVASTATIN (LIPITOR) 20 mg PO DAILY ##0 05/27/17 Unknown BUPRENORPHIN-NALOXON 2 tabs sublingual Q24H ##0 05/27/17 Unknown BUPROPION HCL (BUPROPION HCL XL) 150 mg PO DAILY ##0 05/27/17 Unknown Bupropion HCl (Bupropion HCl Xl) 300 mg PO DAILY ##0 05/27/17 Unknown Cetirizine (Zyrtec) 10 mg PO DAILY PRN Seasonal 05/27/17 Unknown Allergies ##0 HYDROXYZINE HCL (ATARAX) 50 mg PO Q8 PRN Anxiety ##0 05/27/17 Unknown LAMOTRIGINE 200 mg PO DAILY ##0 05/27/17 Unknown naproxen 500 mg tablet 500 mg PO BID PRN pain #20 tabs 08/11/23 Unknown Active Medications Generic Name Dose Route Start Last Admin Trade Name Freq PRN Reason Stop Dose Admin Thiamine HCl 200 mg/ Sodium 52 mls @ 210 mls/hr 11/25/23 21:00 11/26/23 08:12 Chloride IV 12/25/23 20:59 Infused BID MARGOT Infusion Folic Acid 1 mg/ Syringe 10 mls @ 5 mls/min 11/26/23 09:00 11/26/23 07:46 IV 12/26/23 08:59 5 mls/min QAM MARGOT Administration Lorazepam 1 mg/ Syringe 1 mls @ 2 mls/min 11/25/23 10:46 11/25/23 22:59 IV 12/25/23 10:45 2 mls/min UD PRN Administration EtOH Withdrawal AWSS Score 6,7 Protocol Lorazepam 2 mg/ Syringe 2 mls @ 2 mls/min 11/25/23 10:46 11/26/23 07:44 IV 12/25/23 10:45 2 mls/min UD PRN Administration EtOH Withdrawal AWSS Score 8,9 Protocol Ampicillin Sodium/Sulbactam 100 mls @ 100 mls/hr 11/25/23 16:00 11/26/23 11:00 Sodium 3,000 mg/ Sodium IV 11/27/23 15:59 Infused Chloride Q6H MARGOT Infusion Miscellaneous 1 each 11/25/23 21:00 11/25/23 22:26 Remove Lidoderm Patch N/A 12/25/23 20:59 Not Given DAILY@2100 MARGOT Nicotine 14 mg 11/25/23 21:30 11/25/23 22:23 Nicotine 14 Mg/24 Hr Patch TD 12/25/23 21:29 14 mg HS MARGOT Administration (1) Altered mental status Altered mental status type: unspecified Qualified Code(s): R41.82 - Altered mental status, unspecified (2) Hypothermia Encounter type: initial encounter Qualified Code(s): T68.XXXA - Hypothermia, initial encounter
--- NOTE | 2023-11-26 11:24 | Neurology Consultation ---
Date of Consultation November 26, 2023 Assessment & Plan (1) Epilepsy: Reported hx of seizure- reports last seizure 4 years ago States she has not been on oxcarbazepine for almost two months Recently taking bupropion Recommend psychiatry consultation: patient reports hx of being prescribed oxcarbazepine and lamotrigine due to overlapping effects of mood stabilization and AED Recommend do not take bupropion due to medication risk of lowering seizure threshold Recommend do not take levetiracetam due to hx of suicidal attempt/ideation Recommend continued CIWA protocol, vitamin supplementation From neurology perspective: Recommend continued seizure precautions, and utilize benzodiazepines emergently for any breakthrough clinical seizure like activity Obtain MRI brain with and without contrast and EEG non urgently Would likely benefit from continued medication for mood stabilization with subsequent antiepileptic effect as well- defer to psychiatry (2) Lumbago: Reports lower back pain- she thinks she may have fallen Recommend continue to monitor/control pain Recommend imaging of lumbar spine to evaluate for injury Telehealth Consultation Telehealth Information Telehealth Information: I performed this visit using a real-time telehealth connection between my location and the patients location ([facility]). After connecting through interactive tele-video, patient was identified by name and date of and/or wristband check.Patient (or authorized healthcare malt liquors sales representative) was informed that this was a telemedicine visit and it was being conducted confidentially over secure lines. My office door was closed and no one else was present in the room with me.Patient (or authorized healthcare malt liquors sales representative) provided consent to proceed with the visit, expressed an understanding of privacy and security of the telemedicine visit, and gave permission to have a hospital malt liquors sales representative in the room in order to assist with the visit and to conduct portions of the visit, as needed. I informed the patient (or authorized healthcare malt liquors sales representative) that I reviewed their record and presented the opportunity for them to ask any questions regarding the visit today. The patient agreed to participate. History of Present Illness Reason for Consultation: Restarting Seizure meds Requesting Physician: Dr. Brunner Attending Physician: Ira Kaplan MD History of Present Illness 48yo female with documented hx of suicide attempt, mood disorder, HCV, polysubstance abuse epilepsy presented hypothermic with significant changes in mentation. Apparently was brought to ER by police. Has been seen via televideo consultation by neurology after request made in regard to seizure medications. She reports not taking oxcarbazepine for nearly two months but notes it was prescribed to her primarily for mood stabilization. Also reports hx of utilizing lamotrigine for both mood stabilization and AED while she was . Reports last seizure over 4 years ago. Does not follow regularly with Neurology for seizure management. She reports recently taking bupropion that she got from a friend but states that she was prescribed this medication in the past. She is able to answer all questions and follow commands without difficulty. neurological exam is non lateralizing nonfocal in terms of motor strength and coordination. There is notable pressure speech. I have explained my recommendation to not take bupropion due to its effect of lowering seizure threshold. I have also explained ton her my recommendation to not take keppra as it is contraindicated in setting of hx of suicidal ideation or suicide attempt. In presence of RN at bedside, I have recommended notifying primary hospitalist team that I recommend psychiatry consultation. Agree with continued CIWA protocol and vitamin supplementation. Allergies Allergy/AdvReac Type Severity Reaction Status Date / Time tree and shrub pollen Allergy Mild PINE SAP Verified 11/26/23 09:32 CAUSES RASH vitamin E (d-alpha Allergy Unknown Unknown Verified 08/11/23 15:32 tocopherol) Home Medications Medication Instructions Recorded Confirmed Type ATORVASTATIN (LIPITOR) 20 mg PO DAILY ##0 05/27/17 History BUPRENORPHIN-NALOXON 2 tabs sublingual Q24H ##0 05/27/17 History BUPROPION HCL (BUPROPION HCL XL) 150 mg PO DAILY ##0 05/27/17 History Bupropion HCl (Bupropion HCl Xl) 300 mg PO DAILY ##0 05/27/17 History Cetirizine (Zyrtec) 10 mg PO DAILY PRN Seasonal 05/27/17 History Allergies ##0 HYDROXYZINE HCL (ATARAX) 50 mg PO Q8 PRN Anxiety ##0 05/27/17 History LAMOTRIGINE 200 mg PO DAILY ##0 05/27/17 History naproxen 500 mg tablet 500 mg PO BID PRN pain #20 tabs 08/11/23 Rx Patient History Medical History (Updated 11/26/23 @ 11:22 by Shahram Pang DO) Collapsed lung Epilepsy Mood disorder Drug abuse and dependence Hepatitis C virus Surgical History (Updated 11/25/23 @ 09:48 by Adair Brunner MD) H/O umbilical hernia repair Family History (Updated 11/25/23 @ 09:50 by Adair Brunner MD) Mother Neurological disorder Father Neurological disorder Daughter Neurological disorder Social History Smoking Status: Unknown if ever smoked Tobacco Type: Cigarettes Second Hand Exposure: No; Do You Dip or Chew Tobacco: No; Tobacco Cessation Education Requested by Patient: No Hx Alcohol Use: Yes Alcohol type: beer Hx Substance Use: Yes (Heroine) Last Used Substance: Unknown Substance Use Type Other:: Xanax and Suboxone. Preferred Language: Kyrgyz Saw Offbearer Required: No Beliefs That Will Affect Care: None Current Living Situation: Homeless Current Living Situation Comment: None. Other Information That Helps Us Care for You: Yes (Has attempted to setup services with local suboxone clinic, not successful.) Feels Safe at Home: Yes Safety Concerns: Feels Safe At This Time Assistive Devices: None Physical Exam Neurological Examination: Mental Status: Awake and alert. Oriented to person, place, and time. Fluency naming repetition and comprehension appear grossly intact. Affect remains appropriate. CN testing: I: Denies changes in ability to smell II:Reports no changes in visual acuity III/IV/: No evidence of gaze preference, hippus, nystagmus or roving eye movements V: Facial sensation reportedly grossly intact to light touch bilaterally VII: Facial movements appear without evidence of asymmetry VIII: Hearing appears grossly intact to loud voice bilaterally IX/X: Palate appears to elevate symmetrically XI: Shoulder shrug appears symmetric/ grossly intact bilaterally XII: Tongue protrudes midline without evidence of biting Motor exam: Strength appears grossly intact/symmetric in all extremities Sensory: Sensation is reportedly grossly intact throughout Coordination: Finger to nose and heel to olson were intact. No apparent evidence of dysmetria or dysdiadochokinesia Reflexes: Deferred Gait: Deferred Results & Data Vital Signs (Past 12 Hours) Vital Signs Temp Pulse Resp BP Pulse Ox O2 Del Method 11/26/23 07:24 36.5 C 86 18 148/106 H 99 Room Air 11/26/23 01:39 36.7 C 73 16 134/88 98 Room Air Laboratory Results Abnormal lab results 11/26/23 Range/Units 05:57 RBC 3.65 L (4.20-5.40) M/uL Hgb 11.3 L (12.0-16.0) g/dl Hct 33.5 L (37.0-47.0) % [place] # (Auto) 0.68 H (0.11-0.59) K/uL Potassium 3.3 L (3.5-5.1) mmol/L Chloride 108 H (98-107) mmol/L Creatinine 0.54 L (0.6-1.2) mg/dl Calcium 8.5 L (8.6-10.3) mg/dl Albumin 3.1 L (3.4-5.0) gm/dl Diagnostic Findings Chest CT 11/25/23 10:03 CT chest diagnostic wo con CT DOSE: 226.07 mGy.cm CLINICAL HISTORY: 48 years-old Female with abnormal imaging. Acute weakness TECHNIQUE: Multiaxial CT images of the chest were performed without contrast. A dose lowering technique was utilized adhering to the principles of ALARA. COMPARISON: Chest radiograph of same day, chest CT 10/30/2015 FINDINGS: Subcentimeter thyroid nodules. Subcentimeter mediastinal and hilar lymph nodes are likely neurologic. Mild nonspecific circumferential wall thickening of the esophagus which is fluid-filled. Heart is upper limits in size without pericardial effusion. No thoracic aortic aneurysm. No pneumothorax, pleural effusion or overt pulmonary edema. Mild patchy subsegmental ground glass opacities are noted throughout the right lung. Mild subsegmental left basilar atelectasis. The central airways are patent. No acute fracture. Soft tissues are unremarkable. No acute upper abdominal abnormality. IMPRESSION: 1. Patchy subsegmental groundglass densities are noted throughout the right lung. This finding in conjunction with a fluid-filled esophagus raises the possibility of aspiration pneumonitis. 2. No lymphadenopathy or pleural effusion. ACT 112: Negative or not required by law. Electronically signed by: Cb Bundy M.D. 11/25/2023 12:30 PM Medications Administered Home Medications Medication Instructions Recorded Confirmed Last Taken ATORVASTATIN (LIPITOR) 20 mg PO DAILY ##0 05/27/17 Unknown BUPRENORPHIN-NALOXON 2 tabs sublingual Q24H ##0 05/27/17 Unknown BUPROPION HCL (BUPROPION HCL XL) 150 mg PO DAILY ##0 05/27/17 Unknown Bupropion HCl (Bupropion HCl Xl) 300 mg PO DAILY ##0 05/27/17 Unknown Cetirizine (Zyrtec) 10 mg PO DAILY PRN Seasonal 05/27/17 Unknown Allergies ##0 HYDROXYZINE HCL (ATARAX) 50 mg PO Q8 PRN Anxiety ##0 05/27/17 Unknown LAMOTRIGINE 200 mg PO DAILY ##0 05/27/17 Unknown naproxen 500 mg tablet 500 mg PO BID PRN pain #20 tabs 08/11/23 Unknown Active Medications Generic Name Dose Route Start Last Admin Trade Name Freq PRN Reason Stop Dose Admin Acetaminophen 650 mg 11/25/23 10:30 11/26/23 07:54 Acetaminophen 325 Mg Tab PO 12/25/23 10:29 650 mg Q4H PRN Administration Pain or Fever Thiamine HCl 200 mg/ Sodium 52 mls @ 210 mls/hr 11/25/23 21:00 11/26/23 08:12 Chloride IV 12/25/23 20:59 Infused BID MARGOT Infusion Folic Acid 1 mg/ Syringe 10 mls @ 5 mls/min 11/26/23 09:00 11/26/23 07:46 IV 12/26/23 08:59 5 mls/min QAM MARGOT Administration Lorazepam 1 mg/ Syringe 1 mls @ 2 mls/min 11/25/23 10:46 11/25/23 22:59 IV 12/25/23 10:45 2 mls/min UD PRN Administration EtOH Withdrawal AWSS Score 6,7 Protocol Lorazepam 2 mg/ Syringe 2 mls @ 2 mls/min 11/25/23 10:46 11/26/23 07:44 IV 12/25/23 10:45 2 mls/min UD PRN Administration EtOH Withdrawal AWSS Score 8,9 Protocol Ampicillin Sodium/Sulbactam 100 mls @ 100 mls/hr 11/25/23 16:00 11/26/23 11:00 Sodium 3,000 mg/ Sodium IV 11/27/23 15:59 Infused Chloride Q6H MARGOT Infusion Miscellaneous 1 each 11/25/23 21:00 11/25/23 22:26 Remove Lidoderm Patch N/A 12/25/23 20:59 Not Given DAILY@2100 MARGOT Nicotine 14 mg 11/25/23 21:30 11/25/23 22:23 Nicotine 14 Mg/24 Hr Patch TD 12/25/23 21:29 14 mg HS MAROGT Administration
[2023-11-26] MEDS: POTASSIUM CHLORIDE CRTAB 20 MEQ TABCR PO STA (11:48)
[2023-11-26] MEDS: LIDOCAINE 5% 1 PATCH TD SCH (12:50)
[2023-11-26] MEDS: ENOXAPARIN INJ 40 MG/0.4 ML SYR SQ SCH (13:17)
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
[2023-11-26] MEDS: ACETAMINOPHEN 325 MG TAB PO SCH (14:24)
--- NOTE | 2023-11-26 16:52 | Electrocardiogram Report ---
Test Reason : Blood Pressure : / mmHG Vent. Rate : 081 BPM Atrial Rate : 081 BPM P-R Int : 132 ms QRS Dur : 074 ms QT Int : 402 ms P-R-T Axes : 025 035 037 degrees QTc Int : 466 ms Normal sinus rhythm Normal ECG When compared with ECG of 25-NOV-2023 07:19, No significant change was found Confirmed by Alfredito Sams ([id number]) on 11/26/2023 4:51:45 PM Referred By: REFERRED SELF Confirmed By:Stew Sams
[2023-11-26] MEDS: AMOXICILLIN/CLAVULANATE 875 MG TAB PO SCH (17:25)
--- NOTE | 2023-11-26 18:30 | CT Scan Report ---
CT SCAN OF THE LUMBAR SPINE WITHOUT IV CONTRAST CLINICAL HISTORY: Low back pain. Recent fall. COMPARISON STUDY: Radiographs of the lumbar spine dated 11/25/2023. Abdominal CT dated 05/01/2011. TECHNIQUE: CT scan of the lumbar spine was performed from the lower thoracic spine to the sacrum. Mariya ges are reviewed in the axial, sagittal, and coronal planes. IV contrast was not administered for thi s examination. A dose lowering technique was utilized adhering to the principles of ALARA. CT DOSE: 873.26 mGy.cm FINDINGS: The skeletal structures are well mineralized. There is no evidence of acute fracture or mal alignment involving the lumbar spine. Vertebral body height is maintained throughout the lumbar spine . There are bilateral pars defects at L4 with 1.5 cm of anterolisthesis at L4-L5. Alignment is otherw ise preserved. The transverse and spinous processes appear intact. No lytic or blastic lesion is seen . There is severe disc space narrowing at L4-L5 with associated endplate sclerosis. Moderate to sever e disc space narrowing is noted at L5-S1. The remaining disc spaces are maintained. Anterolisthesis c ontributes to at least mild central canal stenosis at L4-L5. A posterior disc bulge at L5-S1 is of no consequence. There is likely severe bilateral neural foraminal stenosis at L4-L5. The visualized sac rum and bony pelvis appear intact. Minimal degenerative change is noted in the sacroiliac joints. The paraspinous soft tissues are within normal limits. The visualized retroperitoneal structures are nor mal as imaged. IMPRESSION: 1. No acute bony abnormality is seen involving the lumbar spine. 2. There are bilateral pars defects at L4 with severe disc space narrowing and anterolisthesis at L4- L5. 3. Mild degenerative change as detailed above. ACT 112: Negative or not required by law. Dictated: 11/26/2023 1:33 PM Transcribed: 11/26/2023 1:44 PM Mariela [id number] JEFFERSON_Kirill [id number] Electronically signed by: Misael Archibald M.D. 11/26/2023 6:28 PM
[2023-11-26] MEDS: PROPRANOLOL HCL 10 MG TAB PO PRN (18:38)
[2023-11-26] MEDS: LORazepam 1 MG in SYRINGE 0.5 ML IV STA (19:38)
[2023-11-26] MEDS: GADOBUTROL 65ML VIAL IV ONE (21:02)
--- NOTE | 2023-11-26 21:40 | Magnetic Resonance Report ---
Exam(s): MRI HEAD W/WO Contrast IV Amt: 6.5CC GADAVIST EXAM: MR Head Without and With Intravenous Contrast CLINICAL HISTORY: Reason for exam: encephalopathy, hx of seizure. TECHNIQUE: Magnetic resonance images of the head/brain without and with intravenous contrast in multiple planes. Mild motion artifact. CONTRAST: Patient received 6.5CC GADAVIST of IV contrast COMPARISON: None. FINDINGS: Brain: No mass-effect or acute infarct. No acute or chronic hemorrhage. No abnormal enhancement. No mesial temporal sclerosis. Very minimal, chronic, nonspecific white matter disease. Ventricles: No hydrocephalus or midline shift. Bones/joints: No calvarial lesions. Soft tissues: No scalp hematoma. Sinuses: Generally clear. Mastoid air cells: No mastoid effusion. IMPRESSION: 1. Minimal age-related findings, as expected. 2. No abnormal enhancement, acute infarct, bleed, or acute intracranial abnormality. Electronically signed by: Yoselin Aivles M.D. 11/26/23 21:39 PM
[2023-11-26] MEDS: ARIPiprazole 5 MG TAB PO SCH (23:02)
[2023-11-26] MEDS: GABAPENTIN 400 MG CAP PO STA (23:08)
[2023-11-26] MEDS: KETOROLAC TROMETHAMINE 15 MG/ML VIAL IV PRN (23:19)
[2023-11-27 07:56] LABS: Hematocrit (blood only) 37.5 % (37.0-47.0); Hemoglobin 12.7 g/dl (12.0-16.0); Mean Corpuscular Hemoglobin 30.8 pg (25.0-34.0); Mean Corpuscular Hgb Conc 33.9 g/dL (32.0-36.0); Mean Platelet Volume 9.5 fL (9.4-12.4); Platelet Count 307 K/uL (130-400); RDW Coefficient of Variation 12.4 % (11.5-14.5); RDW Standard Deviation 41.3 fL (36.4-46.3); Red Blood Count 4.12 M/uL (4.20-5.40); White Blood Count 7.03 K/ul (4.8-10.8)
[2023-11-27 08:17] LABS: Albumin Level 3.3 gm/dl (3.4-5.0); BUN Creatinine Ratio 17.2 (10-20); Bilirubin Direct 0.1 mg/dl (0-0.2); Bilirubin,Total 0.3 mg/dl (0.2-1.0); Calcium 9.2 mg/dl (8.6-10.3); Creatinine Clr Calc Pharmacy 109.3 ml/min; Est GFR (African American) 127.2 ml/min; Est GFR (Non-African American) 109.8 ml/min; Magnesium 2.1 mg/dl (1.7-2.4); Phosphorus 4.1 mg/dl (2.5-4.9); Potassium 4.1 mmol/L (3.5-5.1); Total Protein 6.7 gm/dl (6.0-8.3)
[2023-11-27] MEDS: THIAMINE HCL 100 MG TAB PO SCH (08:28)
[2023-11-27] MEDS: FLUoxetine HCL 20 MG CAP PO SCH (08:28)
[2023-11-27 08:35] LABS: Folate (Folic Acid),Ser orPlas 8.29 ng/ml (>5.38)
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
[2023-11-27] MEDS: KETOROLAC 30 MG/ML VIAL IV PRN (09:34)
[2023-11-27] MEDS: GABAPENTIN 300 MG CAP PO SCH (09:56)
[2023-11-27] MEDS ORDERED: GABAPENTIN 400 MG CAP PO SCH (11:00)
[2023-11-27 20:01] LABS: Adenovirus F 40/41 PCR Not Detected (NotDetected); Astrovirus PCR Not Detected (NotDetected); Campylobacter PCR Not Detected (NotDetected); Cryptosporidium PCR Not Detected (NotDetected); Cyclospora cayetanensis PCR Not Detected (NotDetected); Entamoeba histolytica PCR Not Detected (NotDetected); Enteroaggregative E.coli(EAEC) Not Detected (NotDetected); Enteropathogenic E.coli (EPEC) Not Detected (NotDetected); Enterotoxigenic E.coli (ETEC) Not Detected (NotDetected); Giardia lamblia PCR Not Detected (NotDetected); Norovirus GI/GII PCR Not Detected (NotDetected); Plesiomonas shigelloides PCR Not Detected (NotDetected); Rotavirus A PCR Not Detected (NotDetected); Salmonella PCR Not Detected (NotDetected); Sapovirus PCR Not Detected (NotDetected); Shiga-like Toxin E.coli (STEC) Not Detected (NotDetected); Shigella/Enteroinvasive E.coli Not Detected (NotDetected); Vibrio cholerae PCR Not Detected (NotDetected); Vibrio species PCR Not Detected (NotDetected); Yersinia enterocolitica PCR Not Detected (NotDetected)
[2023-11-27] MEDS: LOPERAMIDE HCL 2 MG CAP PO PRN (22:21)
[2023-11-27] MEDS: DICYCLOMINE HCL 20 MG TAB PO PRN (22:21)
--- NOTE | 2023-11-28 06:43 | Electroencephalogram ---
EEG Procedure Note Date of Service November 28, 2023 Start / End Times Start Time: 11:29 End Time: 11:49 Referring Physician Aaron Kaplan History A 48 year old female admitted with altered mental status. EEG performed for evaluation of epileptiform actiity. Home Medication List Medication Instructions Recorded Confirmed Type ATORVASTATIN (LIPITOR) 20 mg PO DAILY ##0 05/27/17 History BUPRENORPHIN-NALOXON 2 tabs sublingual Q24H ##0 05/27/17 History BUPROPION HCL (BUPROPION HCL XL) 150 mg PO DAILY ##0 05/27/17 History Bupropion HCl (Bupropion HCl Xl) 300 mg PO DAILY ##0 05/27/17 History Cetirizine (Zyrtec) 10 mg PO DAILY PRN Seasonal 05/27/17 History Allergies ##0 HYDROXYZINE HCL (ATARAX) 50 mg PO Q8 PRN Anxiety ##0 05/27/17 History LAMOTRIGINE 200 mg PO DAILY ##0 05/27/17 History naproxen 500 mg tablet 500 mg PO BID PRN pain #20 tabs 08/11/23 Rx Inpatient Medication List Acetaminophen (Acetaminophen 325 Mg Tab) 650 mg PO Q6H [facility] Stop: 12/26/23 13:59 Last Admin: 11/28/23 02:20 Dose: Not Given Documented By: Admin: 11/27/23 19:57 Dose: 650 mg Documented By: Admin: 11/27/23 13:44 Dose: 650 mg Documented By: Admin: 11/27/23 08:27 Dose: 650 mg Documented By: Admin: 11/27/23 05:12 Dose: Not Given Documented By: Admin: 11/26/23 22:12 Dose: 650 mg Documented By: Admin: 11/26/23 14:24 Dose: 650 mg Documented By: LUIS Amoxicillin/Clavulanate Potassium (Amoxicillin/Clavulanate 875 Mg Tab) 1 tab PO BIDM [facility]; Protocol Stop: 12/06/23 16:59 Last Admin: 11/27/23 16:21 Dose: 1 tab Documented By: Admin: 11/27/23 08:28 Dose: 1 tab Documented By: Admin: 11/26/23 17:25 Dose: 1 tab Documented By: LUIS Aripiprazole (Aripiprazole 5 Mg Tab) 5 mg PO QPM MARGOT Stop: 12/26/23 20:59 Last Admin: 11/27/23 20:00 Dose: 5 mg Documented By: Admin: 11/26/23 23:02 Dose: 5 mg Documented By: SOFIA Dicyclomine HCl (Dicyclomine Hcl 20 Mg Tab) 20 mg PO QID PRN PRN Reason: abdominal pain Stop: 12/26/23 12:59 Last Admin: 11/27/23 22:21 Dose: 20 mg Documented By: LA Enoxaparin Sodium (Enoxaparin Inj 40 Mg/0.4 Ml Syr) 40 mg SQ Q24H [facility] Stop: 12/26/23 12:14 Last Admin: 11/27/23 12:31 Dose: 40 mg Documented By: Admin: 11/26/23 13:17 Dose: Not Given Documented By: LUIS Fluoxetine HCl (Fluoxetine Hcl 20 Mg Cap) 20 mg PO QAM MARGOT Stop: 12/27/23 08:59 Last Admin: 11/27/23 08:28 Dose: 20 mg Documented By: ADI Gabapentin (Gabapentin 300 Mg Cap) 300 mg PO TID [facility] Stop: 12/27/23 09:14 Last Admin: 11/27/23 20:01 Dose: 300 mg Documented By: Admin: 11/27/23 13:44 Dose: 300 mg Documented By: Admin: 11/27/23 09:56 Dose: 300 mg Documented By: ADI Folic Acid 1 mg/ Syringe 10 mls @ 5 mls/min IV QAM MARGOT Stop: 12/26/23 08:59 Last Admin: 11/27/23 08:29 Dose: 5 mls/min Documented By: Admin: 11/26/23 07:46 Dose: 5 mls/min Documented By: LUIS Lorazepam 1 mg/ Syringe 1 mls @ 2 mls/min IV UD PRN; Protocol PRN Reason: EtOH Withdrawal AWSS Score 6,7 Stop: 12/25/23 10:45 Last Admin: 11/27/23 20:10 Dose: 2 mls/min Documented By: Admin: 11/26/23 22:24 Dose: 2 mls/min Documented By: Admin: 11/25/23 22:59 Dose: 2 mls/min Documented By: Admin: 11/25/23 20:34 Dose: 2 mls/min Documented By: CARLO Lorazepam 2 mg/ Syringe 2 mls @ 2 mls/min IV UD PRN; Protocol PRN Reason: EtOH Withdrawal AWSS Score 8,9 Stop: 12/25/23 10:45 Last Admin: 11/26/23 07:44 Dose: 2 mls/min Documented By: LUIS Ketorolac Tromethamine (Ketorolac 30 Mg/Ml Vial) 30 mg IV Q6H PRN PRN Reason: Pain Stop: 12/02/23 09:06 Last Admin: 11/27/23 22:21 Dose: 30 mg Documented By: Admin: 11/27/23 16:21 Dose: 30 mg Documented By: Admin: 11/27/23 09:34 Dose: 30 mg Documented By: ADI Lidocaine (Lidocaine 5% 1 Patch) 1 patch TD QAM [facility] Stop: 12/26/23 11:59 Last Admin: 11/27/23 08:29 Dose: 1 patch Documented By: Admin: 11/26/23 12:50 Dose: 1 patch Documented By: LUIS Loperamide HCl (Loperamide Hcl 2 Mg Cap) 2 mg PO Q4H PRN PRN Reason: Diarrhea Stop: 12/27/23 16:31 Last Admin: 11/27/23 22:21 Dose: 2 mg Documented By: LA Misjuananeous (Remove Lidoderm Patch) 1 each N/A DAILY@2100 [facility] Stop: 12/25/23 20:59 Last Admin: 11/27/23 20:03 Dose: 1 each Documented By: Admin: 11/26/23 22:23 Dose: Not Given Documented By: Admin: 11/25/23 22:26 Dose: Not Given Documented By: CARLO Fonganeous (Remove Nicoderm Patch) 1 each N/A DAILY@2058 [facility] Stop: 12/26/23 20:58 Last Admin: 11/27/23 19:58 Dose: Not Given Documented By: Admin: 11/26/23 22:23 Dose: Not Given Documented By: SOFIA Miscellaneous (Remove Lidoderm Patch) 1 each N/A DAILY@2100 [facility] Stop: 12/26/23 20:59 Last Admin: 11/27/23 20:04 Dose: Not Given Documented By: Admin: 11/26/23 22:23 Dose: Not Given Documented By: SOFIA Nicotine (Nicotine 14 Mg/24 Hr Patch) 14 mg TD HS MARGOT Stop: 12/25/23 21:29 Last Admin: 11/27/23 20:01 Dose: 14 mg Documented By: Admin: 11/26/23 22:23 Dose: Not Given Documented By: Admin: 11/25/23 22:23 Dose: 14 mg Documented By: CARLO Propranolol HCl (Propranolol Hcl 10 Mg Tab) 10 mg PO BID PRN PRN Reason: anxiety Stop: 12/26/23 20:59 Last Admin: 11/27/23 09:07 Dose: 10 mg Documented By: Admin: 11/26/23 18:38 Dose: 10 mg Documented By: ADI Thiamine HCl (Thiamine Hcl 100 Mg Tab) 100 mg PO QAM MARGOT Stop: 12/27/23 08:59 Last Admin: 11/27/23 08:28 Dose: 100 mg Documented By: ADI Discontinued Medications Acetaminophen (Acetaminophen 325 Mg Tab) 650 mg PO Q4H PRN PRN Reason: Pain or Fever Stop: 12/25/23 10:29 Last Admin: 11/26/23 07:54 Dose: 650 mg Documented By: Admin: 11/25/23 20:18 Dose: 650 mg Documented By: CARLO Cyclobenzaprine HCl (Cyclobenzaprine Hcl 10 Mg Tab) 10 mg PO NOW STA Stop: 11/26/23 09:28 Last Admin: 11/26/23 09:42 Dose: 10 mg Documented By: LUIS Fluoxetine HCl (Fluoxetine Hcl 10 Mg Cap) 10 mg PO NOW STA Stop: 11/26/23 09:27 Last Admin: 11/26/23 09:42 Dose: 10 mg Documented By: LUIS Gabapentin (Gabapentin 600 Mg Tab) 600 mg PO Q24H MARGOT Stop: 11/26/23 11:01 Last Admin: 11/26/23 10:27 Dose: 600 mg Documented By: LUIS Gabapentin (Gabapentin 100 Mg Cap) 100 mg PO Q6H MARGOT Stop: 11/26/23 02:01 Last Admin: 11/26/23 02:38 Dose: 100 mg Documented By: Admin: 11/25/23 20:34 Dose: 100 mg Documented By: CARLO Gabapentin (Gabapentin 600 Mg Tab) 600 mg PO NOW ONE Stop: 11/25/23 13:01 Last Admin: 11/25/23 13:53 Dose: 600 mg Documented By: GIRISH Gabapentin (Gabapentin 400 Mg Cap) 400 mg PO NOW STA Stop: 11/26/23 22:42 Last Admin: 11/26/23 23:08 Dose: 400 mg Documented By: SOFIA Gadobutrol (Gadobutrol 65ml Vial) 6.5 ml IV ONCE ONE Stop: 11/26/23 21:02 Last Admin: 11/26/23 21:02 Dose: 6.5 ml Documented By: [facility] Sodium Chloride (Nss) 1,000 mls @ 999 mls/hr IV .Q1H1M MARGOT Stop: 11/25/23 08:30 Last Infusion: 11/25/23 08:51 Dose: Infused Documented By: Admin: 11/25/23 07:37 Dose: 999 mls/hr Documented By: Infusion: 11/25/23 07:37 Dose: Infused Documented By: Admin: 11/25/23 06:43 Dose: 999 mls/hr Documented By: PAU Thiamine HCl 100 mg/ Syringe 10 mls @ 2 mls/min IV NOW STA Stop: 11/25/23 06:36 Last Admin: 11/25/23 06:58 Dose: 2 mls/min Documented By: TNK Folic Acid 1 mg/ Syringe 10 mls @ 5 mls/min IV NOW STA Stop: 11/25/23 06:33 Last Admin: 11/25/23 06:58 Dose: 5 mls/min Documented By: TNK Ceftriaxone Sodium (Rocephin) 2,000 mg in 50 mls @ 100 mls/hr IV NOW STA Stop: 11/25/23 08:17 Last Infusion: 11/25/23 09:20 Dose: Infused Documented By: Admin: 11/25/23 08:49 Dose: 100 mls/hr Documented By: TNK Ampicillin Sodium/Sulbactam Sodium 3,000 mg/ Sodium Chloride 100 mls @ 200 mls/hr IV NOW STA Stop: 11/25/23 09:35 Last Infusion: 11/25/23 11:05 Dose: Infused Documented By: Admin: 11/25/23 09:49 Dose: 200 mls/hr Documented By: TNK Potassium Chloride (K Adrián / Wtr) 10 meq in 100 mls @ 100 mls/hr IV ONE ONE Stop: 11/25/23 13:44 Last Infusion: 11/25/23 15:05 Dose: Infused Documented By: Infusion: 11/25/23 15:05 Dose: 0 mls/hr Documented By: Admin: 11/25/23 13:45 Dose: 50 mls/hr Documented By: BT Thiamine HCl 200 mg/ Sodium (Chloride) 52 mls @ 210 mls/hr IV BID [facility] Stop: 12/25/23 20:59 Last Infusion: 11/26/23 08:12 Dose: Infused Documented By: Admin: 11/26/23 07:46 Dose: 210 mls/hr Documented By: Infusion: 11/25/23 20:41 Dose: Infused Documented By: Admin: 11/25/23 20:28 Dose: 210 mls/hr Documented By: CARLO Magnesium Sulfate/Dextrose (Magnesium Sulfate / D5w) 1 gm in 100 mls @ 50 mls/hr IV ONE ONE Stop: 11/25/23 14:44 Last Infusion: 11/25/23 17:00 Dose: Infused Documented By: Infusion: 11/25/23 15:05 Dose: 50 mls/hr Documented By: Infusion: 11/25/23 14:14 Dose: 0 mls/hr Documented By: Admin: 11/25/23 13:45 Dose: 50 mls/hr Documented By: GIRISH Ampicillin Sodium/Sulbactam Sodium 3,000 mg/ Sodium Chloride 100 mls @ 100 mls/hr IV Q6H [facility] Stop: 11/27/23 15:59 Last Admin: 11/26/23 16:25 Dose: Not Given Documented By: Infusion: 11/26/23 11:00 Dose: Infused Documented By: Admin: 11/26/23 09:44 Dose: 100 mls/hr Documented By: Infusion: 11/26/23 04:21 Dose: Infused Documented By: Admin: 11/26/23 03:21 Dose: 100 mls/hr Documented By: Infusion: 11/25/23 22:27 Dose: Infused Documented By: Admin: 11/25/23 21:34 Dose: 100 mls/hr Documented By: Infusion: 11/25/23 18:31 Dose: Infused Documented By: Admin: 11/25/23 16:54 Dose: 100 mls/hr Documented By: BT Lorazepam 1 mg/ Syringe 1 mls @ 2 mls/min IV NOW STA Stop: 11/26/23 19:11 Last Admin: 11/26/23 19:38 Dose: 2 mls/min Documented By: SOFIA Ketorolac Tromethamine (Ketorolac Tromethamine 15 Mg/Ml Vial) 15 mg IV NOW ONE Stop: 11/25/23 08:48 Last Admin: 11/25/23 09:04 Dose: 15 mg Documented By: TNK Ketorolac Tromethamine (Ketorolac Tromethamine 15 Mg/Ml Vial) 15 mg IV Q6H PRN PRN Reason: Pain Stop: 12/01/23 09:26 Last Admin: 11/26/23 23:19 Dose: 15 mg Documented By: SOFIA Ketorolac Tromethamine (Ketorolac Tromethamine 15 Mg/Ml Vial) 15 mg IV NOW ONE Stop: 11/26/23 09:28 Last Admin: 11/26/23 09:42 Dose: 15 mg Documented By: LUIS Lidocaine (Lidocaine 5% 1 Patch) 1 patch TD NOW STA Stop: 11/25/23 10:51 Last Admin: 11/25/23 13:48 Dose: 1 patch Documented By: BT Potassium Chloride (Potassium Chloride Crtab 20 Meq Tabcr) 40 meq PO NOW STA Stop: 11/26/23 10:18 Last Admin: 11/26/23 11:48 Dose: 40 meq Documented By: LUIS Description This is a 21 electrode EEG with a single channel dedicated to limited EKG. The electrodes were placed in accordance with the International 10-20 system. REPORT: At the onset of the EEG the patient is drowsy. The background is sy mmetric and consist of low amplitude suppressed activity with intermixed faster frequencies. Drowsiness is characterized by increased suppressed or delta activity. NO stage II sleep transients are seen. Photic does not induce any abnormalities. Interpretation IMPRESSION: This is an abnormal routine EEG due to generalized background slowing suggestive of non specific encephalopathy. There is no evidence of epileptiform activity.
[2023-11-28 10:06] LABS: Hematocrit (blood only) 37.2 % (37.0-47.0); Hemoglobin 12.2 g/dl (12.0-16.0); Mean Corpuscular Hemoglobin 30.7 pg (25.0-34.0); Mean Corpuscular Hgb Conc 32.8 g/dL (32.0-36.0); Mean Corpuscular Volume 93.7 fL (80.0-100.0); Mean Platelet Volume 9.8 fL (9.4-12.4); Platelet Count 316 K/uL (130-400); RDW Coefficient of Variation 12.4 % (11.5-14.5); RDW Standard Deviation 42.5 fL (36.4-46.3); Red Blood Count 3.97 M/uL (4.20-5.40); White Blood Count 6.68 K/ul (4.8-10.8)
[2023-11-28 10:22] LABS: BUN Creatinine Ratio 17.6 (10-20); Calcium 9.3 mg/dl (8.6-10.3); Creatinine Clr Calc Pharmacy 93.3 ml/min; Est GFR (African American) 120.7 ml/min; Est GFR (Non-African American) 104.2 ml/min; Potassium 4.7 mmol/L (3.5-5.1)
[2023-11-28] MEDS ORDERED: GABAPENTIN 100 MG CAP PO SCH (11:00)
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
[2023-11-29 06:40] LABS: BUN Creatinine Ratio 21.5 (10-20); Calcium 9.4 mg/dl (8.6-10.3); Creatinine Clr Calc Pharmacy 97.6 ml/min; Est GFR (African American) 122.5 ml/min; Est GFR (Non-African American) 105.7 ml/min; Potassium 4.1 mmol/L (3.5-5.1)
[2023-11-29 06:41] LABS: Hematocrit (blood only) 35.3 % (37.0-47.0); Hemoglobin 12.1 g/dl (12.0-16.0); Mean Corpuscular Hgb Conc 34.3 g/dL (32.0-36.0); Mean Corpuscular Volume 90.5 fL (80.0-100.0); Platelet Count 330 K/uL (130-400); RDW Coefficient of Variation 12.3 % (11.5-14.5); RDW Standard Deviation 40.7 fL (36.4-46.3); White Blood Count 8.21 K/ul (4.8-10.8)
--- NOTE | 2023-11-29 08:08 | Orthopedic Consultation ---
Date of Consultation November 29, 2023 Assessment & Plan (1) Spondylolisthesis, lumbar region: CAT scan demonstrates evidence of a grade 1 spondylolisthesis L4-L5 with obvious bilateral pars defect. It is severely collapsed and on the border of autofusion. There is to space collapse and vacuum phenomenon L5-S1. Plan at this time patient is highly functional. She has multiple medical issues and clearly not a surgical candidate at this point. I recommend she undergo physical therapy and if necessary interventional pain management. History of Present Illness Reason for Consultation: Back pain Attending Physician: Selma Alicea MD History of Present Illness This is a 48-year-old female presents the hospital with multiple medical issues. She upon workup was diagnosed with degenerative disease and spondylolisthesis based on the lumbar CAT scan. She states that her pain is controlled. She denies any numbness or tingling lower extremities. She not undergone any recent physical therapy or interventional pain management. Allergies Allergy/AdvReac Type Severity Reaction Status Date / Time tree and shrub pollen Allergy Mild PINE SAP Verified 11/26/23 09:32 CAUSES RASH vitamin E (d-alpha Allergy Unknown Unknown Verified 08/11/23 15:32 tocopherol) Home Medications Medication Instructions Recorded Confirmed Type ATORVASTATIN (LIPITOR) 20 mg PO DAILY ##0 05/27/17 History BUPRENORPHIN-NALOXON 2 tabs sublingual Q24H ##0 05/27/17 History BUPROPION HCL (BUPROPION HCL XL) 150 mg PO DAILY ##0 05/27/17 History Bupropion HCl (Bupropion HCl Xl) 300 mg PO DAILY ##0 05/27/17 History Cetirizine (Zyrtec) 10 mg PO DAILY PRN Seasonal 05/27/17 History Allergies ##0 HYDROXYZINE HCL (ATARAX) 50 mg PO Q8 PRN Anxiety ##0 05/27/17 History LAMOTRIGINE 200 mg PO DAILY ##0 05/27/17 History naproxen 500 mg tablet 500 mg PO BID PRN pain #20 tabs 08/11/23 Rx Patient History Medical History (Updated 11/29/23 @ 08:08 by Denny Anthony DO) Collapsed lung Epilepsy Mood disorder Drug abuse and dependence Hepatitis C virus Surgical History (Updated 11/25/23 @ 09:48 by Adair Brunner MD) H/O umbilical hernia repair Family History (Updated 11/25/23 @ 09:50 by Adair Brunner MD) Mother Neurological disorder Father Neurological disorder Daughter Neurological disorder Social History Smoking Status: Unknown if ever smoked Tobacco Type: Cigarettes Second Hand Exposure: No; Do You Dip or Chew Tobacco: No; Tobacco Cessation Education Requested by Patient: No Hx Alcohol Use: Yes Alcohol type: beer Hx Substance Use: Yes (Heroine) Last Used Substance: Unknown Substance Use Type Other:: Xanax and Suboxone. Preferred Language: Yoruba Communication Ability: Effective Harm Reduction Worker Required: No Beliefs That Will Affect Care: None Current Living Situation: Homeless Current Living Situation Comment: None. Other Information That Helps Us Care for You: Yes (Has attempted to setup services with local suboxone clinic, not successful.) Feels Safe at Home: Yes Safety Concerns: Feels Safe At This Time Assistive Devices: None Physical Exam Physical Exam: On exam she is alert and cooperative. She sits up without difficulty. She is good strength testing lower extremities. Results & Data Vital Signs (Past 12 Hours) Vital Signs Temp Pulse Pulse Resp BP Pulse Ox O2 Del Method 11/29/23 07:45 36.6 C 86 16 123/73 97 Room Air 11/29/23 07:10 84 11/29/23 02:33 36.8 C 109 H 20 143/90 H 97 Room Air 11/28/23 23:00 36.8 C 110 H 18 147/89 H 97 Room Air 11/28/23 22:44 98 H 11/28/23 21:38 36.7 C 94 H 16 157/107 H 97 Room Air
[2023-11-29] MEDS: NICOTINE 14 MG/24 HR PATCH TD SCH (08:57)
[2023-11-29 11:52] LABS: 7-Aminoclonaz, Confirm NEGATIVE ng/mL (<25); Amphetamine Urine, Confirm 1125 ng/mL (<250); Hydro-Alp Ur, GC/MS NEGATIVE ng/mL (<25); Hydroxyethylflurazepam, Conf NEGATIVE ng/mL (<50); Hydroxymidazolam Ur, GC/MS NEGATIVE ng/mL (<50); Hydroxytriazolam NEGATIVE ng/mL (<50); Lorazepam, Ur GC/MS NEGATIVE ng/mL (<50); MDA negative; MDEA negative; MDMA (Ecstasy) Urine, Confirm negative; Methamphetamine, Ur Confirm 589 ng/mL (<250); Nordiazepam, Confirm 246 ng/mL (<50); Oxazepam Ur, GC/MS 155 ng/mL (<50); Temazepam, Confirm 560 ng/mL (<50)
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
[2023-11-30 06:29] LABS: Hematocrit (blood only) 36.7 % (37.0-47.0); Hemoglobin 11.8 g/dl (12.0-16.0); Mean Corpuscular Hemoglobin 30.3 pg (25.0-34.0); Mean Corpuscular Hgb Conc 32.2 g/dL (32.0-36.0); Mean Corpuscular Volume 94.3 fL (80.0-100.0); Platelet Count 324 K/uL (130-400); RDW Coefficient of Variation 12.4 % (11.5-14.5); RDW Standard Deviation 43.1 fL (36.4-46.3); Red Blood Count 3.89 M/uL (4.20-5.40); White Blood Count 6.78 K/ul (4.8-10.8)
[2023-11-30 06:48] LABS: BUN Creatinine Ratio 22.4 (10-20); Calcium 9.1 mg/dl (8.6-10.3); Creatinine Clr Calc Pharmacy 83.4 ml/min; Est GFR (African American) 108.3 ml/min; Est GFR (Non-African American) 93.4 ml/min; Potassium 4.2 mmol/L (3.5-5.1)
--- NOTE | 2023-11-30 12:14 | Pain Management Consultation ---
Date of Consultation November 30, 2023 Assessment & Plan (1) Spondylolisthesis, lumbar region: (2) Polysubstance use disorder: (3) Alcoholic intoxication: Complication of substance-induced condition: uncomplicated Qualified Code(s): F10.920 - Alcohol use, unspecified with intoxication, uncomplicated (4) Suicide attempt: (5) Drug dependence: Plan 1. Patient states that her back pain is well controlled with current medication regimen. 2. On discharge could consider prescription for Meloxicam 15mg daily for NSAID use. 3. Continue Tylenol up to 3 grams daily for pain relief. 4. She does find Gabapentin 300mg TID helpful towards diminishing her pain and states that years ago she was on 600mg TID with moderate efficacy and asks if dosage can be increased which I have denied that request. 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 5. Nothing to offer interventionally at this time. 6. Recommend that she work with physical therapy - back and core strengthening to help with spondylolisthesis. 7. Avoid opioids given significant substance abuse history. Will sign off on the patient. History of Present Illness Reason for Consultation: Back pain Attending Physician: Selma Alicea MD History of Present Illness This is a 48-year-old female that was brought into the emergency department on 11/25/2023 for alcohol intoxication and hypothermia. Patient does have a significant history of illicit drug use, suicide attempt, polysubstance use disorder. Admitted for altered mental status and hypothermia. During her hospital stay she has been reporting low back pain and states that about a week ago she fell while intoxicated and caused the pain. She has been receiving Toradol IV, Tylenol by mouth, lidocaine patch applied which has been providing moderate pain relief. She is currently on gabapentin for alcohol withdrawal symptoms and states that it is helpful towards managing her pain. She states that many years ago she was on gabapentin 600 mg 3 times daily and requesting dosage increase. Pain is located along the lumbar region and radiating into the hips. She is reporting an occasional shooting pain down the back of the legs which is occasional. Patient describes a deep aching pain in the low back. She approximates 90% low back pain and 10% radicular pain. Has previously been evaluated by orthopedic surgery and surgery is not recommended at this time. Patient denies any bowel/bladder incontinence, saddle anesthesia, foot drop, leg weakness, falls. Case discussed with Dr. Estrella Magana Allergies Allergy/AdvReac Type Severity Reaction Status Date / Time tree and shrub pollen Allergy Mild PINE SAP Verified 11/26/23 09:32 CAUSES RASH vitamin E (d-alpha Allergy Unknown Unknown Verified 08/11/23 15:32 tocopherol) Home Medications Medication Instructions Recorded Confirmed Type ATORVASTATIN (LIPITOR) 20 mg PO DAILY ##0 05/27/17 History BUPRENORPHIN-NALOXON 2 tabs sublingual Q24H ##0 05/27/17 History BUPROPION HCL (BUPROPION HCL XL) 150 mg PO DAILY ##0 05/27/17 History Bupropion HCl (Bupropion HCl Xl) 300 mg PO DAILY ##0 05/27/17 History Cetirizine (Zyrtec) 10 mg PO DAILY PRN Seasonal 05/27/17 History Allergies ##0 HYDROXYZINE HCL (ATARAX) 50 mg PO Q8 PRN Anxiety ##0 05/27/17 History LAMOTRIGINE 200 mg PO DAILY ##0 05/27/17 History naproxen 500 mg tablet 500 mg PO BID PRN pain #20 tabs 08/11/23 Rx Patient History Medical History (Updated 11/29/23 @ 08:08 by Denny Anthony DO) Collapsed lung Epilepsy Mood disorder Drug abuse and dependence Hepatitis C virus Surgical History (Updated 11/25/23 @ 09:48 by Adair Brunner MD) H/O umbilical hernia repair Family History (Updated 11/25/23 @ 09:50 by Adair Brunner MD) Mother Neurological disorder Father Neurological disorder Daughter Neurological disorder Social History Smoking Status: Unknown if ever smoked Tobacco Type: Cigarettes Second Hand Exposure: No; Do You Dip or Chew Tobacco: No; Tobacco Cessation Education Requested by Patient: No Hx Alcohol Use: Yes Alcohol type: beer Hx Substance Use: Yes (Heroine) Last Used Substance: Unknown Substance Use Type Other:: Xanax and Suboxone. Preferred Language: Maltese Communication Ability: Effective Senior Business Objects Developer Required: No Beliefs That Will Affect Care: None Current Living Situation: Homeless Current Living Situation Comment: None. Other Information That Helps Us Care for You: Yes (Has attempted to setup services with local suboxone clinic, not successful.) Feels Safe at Home: Yes Safety Concerns: Feels Safe At This Time Assistive Devices: None Physical Exam Physical Exam: GENERAL: This is a 48 year old female that does not appear in any acute distr ess. Walking around the hospital room without any issue. HEAD/FACE: Normocephalic. + scabs on face appear to be healing. EYES: No drainage or conjunctival injection. ENT: Nose without bleeding or discharge. Oral mucosa moist. NECK: Full ROM without apparent pain. No swelling or masses noted. RESPIRATORY: Patient with unlabored breathing. No signs of respiratory distress. CHEST/AXILLA: Chest movement symmetrical. No deformities noted. ABDOMEN/GI: No distension BACK: Full ROM in all planes. There is mild tenderness at L4-5 midline. No SI joint tenderness. No myofascial spasm or trigger points noted. SKIN: [place], warm and dry. No rash noted. MS/EXTREMITY: No swelling, no deformities. Moving extremities appropriately. NEURO: Alert and appears oriented. Speech is fluent. Cranial Nerves are grossly intact. PSYCH: Alert, pleasant, affect is calm Results (Pain Clinic) Diagnostic Review CT Findings: CT SCAN OF THE LUMBAR SPINE WITHOUT IV CONTRAST CLINICAL HISTORY: Low back pain. Recent fall. COMPARISON STUDY: Radiographs of the lumbar spine dated 11/25/2023. Abdominal CT dated 05/01/2011. TECHNIQUE: CT scan of the lumbar spine was performed from the lower thoracic spine to the sacrum. Images are reviewed in the axial, sagittal, and coronal planes. IV contrast was not administered for this examination. A dose lowering technique was utilized adhering to the principles of ALARA. CT DOSE: 873.26 mGy.cm FINDINGS: The skeletal structures are well mineralized. There is no evidence of acute fracture or malalignment involving the lumbar spine. Vertebral body height is maintained throughout the lumbar spine. There are bilateral pars defects at L4 with 1.5 cm of anterolisthesis at L4-L5. Alignment is otherwise preserved. The transverse and spinous processes appear intact. No lytic or blastic lesion is seen. There is severe disc space narrowing at L4-L5 with associated endplate sclerosis. Moderate to severe disc space narrowing is noted at L5-S1. The remaining disc spaces are maintained. Anterolisthesis contributes to at least mild central canal stenosis at L4-L5. A posterior disc bulge at L5-S1 is of no consequence. There is likely severe bilateral neural foraminal stenosis at L4- L5. The visualized sacrum and bony pelvis appear intact. Minimal degenerative c hange is noted in the sacroiliac joints. The paraspinous soft tissues are within normal limits. The visualized retroperitoneal structures are normal as imaged. IMPRESSION: 1. No acute bony abnormality is seen involving the lumbar spine. 2. There are bilateral pars defects at L4 with severe disc space narrowing and anterolisthesis at L4-L5. 3. Mild degenerative change as detailed above. ACT 112: Negative or not required by law. Dictated: 11/26/2023 1:33 PM Transcribed: 11/26/2023 1:44 PM Mariela [id number] [facility] [id number] Electronically signed by: Misael Archibald M.D. 11/26/2023 6:28 PM Radiology Findings: XR lumbar spine 2-3V HISTORY: 48 years-old Female fall lower back pain acute low back pain status post fall COMPARISON: CT 05/01/2011 TECHNIQUE: 3 views of the lumbar spine FINDINGS: Moderate colonic fecal retention. Unremarkable soft tissues. Severe L4-L5 intervertebral disc space narrowing with progressive 1.2 cm anterolisthesis secondary to chronic pars defects. Progressively worsened now severe intervertebral disc space narrowing at L5-S1 with severe L5-S1 facet arthrosis. IMPRESSION: 1. No acute fracture. 2. Severe L4-L5 and L5-S1 intervertebral disc space narrowing. 3. Progressive anterolisthesis L4 on L5 secondary to chronic pars defects. ACT 112: Negative or not required by law. The above report was generated using voice recognition software. It may contain grammatical, syntax or spelling errors. Electronically signed by: Cb Bundy M.D. 11/25/2023 9:46 AM
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
== END 2023-11-30 15:21 | disposition home or self-care (01) | DRG 896 ==
LOC: ED 06:15 → 2S 10:30 → INTOOBSV 10:30 → SUATTDRO 10:30 → 2S 12:24 → 2N 11-26 17:59